=== PATIENT | female | born 2000 | race Caucasian/White ===

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

== ENCOUNTER → 2022-07-10 11:34 | Outpatient (CLI) | payer OTHER, SELFPAY ==
--- NOTE | ~2022-07-10 | XR_ITS ---
XR knee RT min 4V 07/10/2022 11:52 INDICATION: Right knee pain PROCEDURE: 4 views right knee COMPARISON: No prior studies for comparison. FINDINGS: Fracture, dislocation or subluxation is not identified. No joint effusion. The soft tissues appear within normal limits. No foreign bodies are identified. IMPRESSION: 1: NO ACUTE BONE OR JOINT ABNORMALITY IDENTIFIED. Reviewed, dictated and finalized at location L.
== END ==
PROVIDERS: PCP Nurse Practitioner Family; Visit Provider Nurse Practitioner Family
DX: M25.561 Pain in right knee (principal)
CPT/HCPCS: 73564

== ENCOUNTER 2022-08-18 10:32 | Emergency (ER) | payer OTHER, SELFPAY ==
[2022-08-18 10:38] VITALS: BP 125/81; PULSE 107; RESP 16; TEMP 36.4; O2SAT 99
--- NOTE | 2022-08-18 10:44 | ED.URI ---
HPI - URI/Sore Throat General Chief Complaint: Upper Respiratory Infection Stated Complaint: Congestion,Cough Time Seen by Provider: 08/18/22 10:38 Source: patient Mode of arrival: ambulatory Limitations: no limitations History of Present Illness HPI Narrative: Tabitha is a 22-year-old female patient presenting to clinic today with complaints of nasal congestion, sinus pain, cough, sore throat, headache, and head congestion. She reports the symptoms have been going on for approximately 10 days. Notes that she has had some green nasal drainage. Denies any fever or chills. No known exposure to anyone with COVID, flu, or strep. MD elicited complaint: cough, sore throat, nasal congestion, sinus pain and other Related Data Home Medications Medication Instructions Recorded Confirmed norgestimate-ethinyl estradiol 1 tablet PO DAILY 08/20/20 08/18/22 0.18 mg/0.215mg/0.25mg-35 mcg(28)tablet Allergies Allergy/AdvReac Type Severity Reaction Status Date / Time Sulfa (Sulfonamide AdvReac Mild Rash Verified 08/18/22 10:43 Antibiotics) Review of Systems Review of Systems: Pertinent positives per HPI. Patient denies any fever, chills, rash, headache, visual changes, dizziness, cough, shortness of breath, chest pain, palpitations, nausea, vomiting, diarrhea, constipation, abdominal pain, or any urinary issues. PMFSH Comments At the time of my signature, I reviewed and agree with the nursing past medical, surgical, social, and family history. There is no relevant family history pertinent to the patient complaint. Exam Narrative: General: Well-developed, overweight, in no apparent distress Head: Normocephalic, atraumatic Eyes: Pupils equally round and reactive to light bilaterally, EOM intact, sclera and conjunctive clear, no discharge, lids normal Ears: TMs intact and congested, ear canals clear, no drainage, grossly hearing normal. Nose: Nares patent, greenish discharge, severe inflammation, maxillary and frontal sinus tenderness. Mouth: Oral pharynx without lesions or masses, good dentition, MMM. Postnasal drip Neck: Supple, trachea midline, no enlargement of anterior or posterior cervical nodes, no thyroid masses or goiter palpable. Cardio: Regular rate and rhythm, s1 and s2 normal, no murmur appreciated. Resp: Clear to auscultation bilaterally, no rhonchi, rales, wheezing or rubs Course Course Emergency Course: Portions of this record may have been created with voice recognition software. Level of Care: Express Care Visit Vital Signs Vital signs: Vital Signs Temperature 36.4 C L 08/18/22 10:38 Pulse Rate 107 H 08/18/22 10:38 Respiratory Rate 16 08/18/22 10:38 Blood Pressure 125/81 08/18/22 10:38 Pulse Oximetry 99 08/18/22 10:38 Temperature 36.4 C L 08/18/22 10:38 Pulse Rate 107 H 08/18/22 10:38 Respiratory Rate 16 08/18/22 10:38 Blood Pressure 125/81 08/18/22 10:38 Pulse Oximetry 99 08/18/22 10:38 Vital signs reviewed MDM - URI/Sore Throat MDM Narrative Medical decision making narrative: At the time of visit patient is resting comfortably on the exam table. I suspect patient has acute bacterial rhinosinusitis. Prescription for prednisone and Augmentin was sent to the pharmacy. Supportive measures were discussed with the patient she voiced understanding discharge instructions agrees to treatment plan. Differential Diagnosis Differential diagnosis: Likely upper respiratory infection, otitis media, sinusitis, viral infection, bronchitis, influenza, pharyngitis and other (Covid) Discharge Plan Discharge Clinical Impression: Acute bacterial rhinosinusitis Patient Disposition: Home, Self-Care Condition: Stable Instructions: Antibiotic Form, Rhinosinusitis (ED) Additional Instructions: Take prescription medications only as prescribed-prednisone and Augmentin Increase fluids and stay well hydrated Tylenol/motrin for pain/fever Flonas
== END 2022-08-18 10:48 | disposition home or self-care (01) ==
PROVIDERS: Emergency Provider Nurse Practitioner Family; PCP Nurse Practitioner Family
DX: J01.90 Acute sinusitis, unspecified (principal); Z86.16 Personal history of COVID-19
CPT/HCPCS: 99213; G0463

== ENCOUNTER 2022-09-13 17:01 | Emergency (ER) | payer OTHER, SELFPAY ==
[2022-09-13 17:15] VITALS: BP 132/78; PULSE 112; RESP 18; TEMP 36.7; O2SAT 99
--- NOTE | 2022-09-13 17:47 | ED.URI ---
HPI - URI/Sore Throat General Chief Complaint: Upper Respiratory Infection Stated Complaint: throat irritation,congestion Time Seen by Provider: 09/13/22 17:48 Source: patient and RN notes reviewed Mode of arrival: ambulatory Limitations: no limitations History of Present Illness HPI Narrative: 22 y/o female presented for c/o sinus pressure, congestion, cough and sore throat. States she has had similar symptoms for over one month. Was seen at [facility] 08/11/22 for the same, prescribed augmentin and steroid, and states she felt better briefly. Taking sudafed and mucinex. Denies sob, wheezing, n/v/d/f/c. MD elicited complaint: cough Related Data Home Medications Medication Instructions Recorded Confirmed norgestimate-ethinyl estradiol 1 tablet PO DAILY 08/20/20 08/18/22 0.18 mg/0.215mg/0.25mg-35 mcg(28)tablet Allergies Allergy/AdvReac Type Severity Reaction Status Date / Time Sulfa (Sulfonamide AdvReac Mild Rash Verified 08/18/22 10:43 Antibiotics) Review of Systems Review of Systems: CONSTITUTIONAL: Denies malaise, chills, sweats, fever EYES: Denies visual changes, redness, or discharge ENT: Reports rhinorrhea, congestion, sinus pain, sore throat CARDIOVASCULAR: Denies chest pain, palpitations, edema RESPIRATORY: Reports cough, post nasal drainage. Denies dyspnea GASTROINTESTINAL: Denies abdominal pain, nausea, vomiting, diarrhea SKIN: Denies rash or itching MUSCULOSKELETAL: denies myalgia NEUROLOGIC: reports chronic headache [facility] Past Medical History Medical History (Updated 09/13/22 @ 19:19 by Kaye Ford, LILY) Chronic headache Exam Narrative: GENERAL: well-appearing, EYES: PERRLA, conjunctivae clear ENT: Mucous membranes moist. sinus congestion. TMs pearly chen with dull light reflex bilaterally; no tragal tenderness. Oropharynx mildly erythematous without lesions or exudate, no drooling, no hoarseness, no trismus, uvula midline. No tripod positioning, muffled voice, soft palate or pharyngeal wall bulging NECK: Supple. No lymphadenopathy CHEST: Clear to auscultation, breath sounds equal. No wheezing, rhonchi, rales, or stridor. No respiratory distress, speaks in full sentences. HEART: Regular rate and rhythm. No murmur heard. SKIN: Warm, dry, no rash. NEURO: Alert and oriented x3. PSYCH: Normal mood and affect Course Course Emergency Course: Patient is aware of diagnosis, understands and agrees to treatment plan. Anticipatory guidance given. Patient agrees to follow-up as directed and is aware of reasons to seek care at the emergency department. Portions of this record may have been created with voice recognition software Level of Care: Express Care Visit Vital Signs Vital signs: Vital Signs Temperature 98.1 F 09/13/22 17:15 Pulse Rate 112 H 09/13/22 17:15 Respiratory Rate 18 09/13/22 17:15 Blood Pressure 132/78 09/13/22 17:15 Pulse Oximetry 99 09/13/22 17:15 Oxygen Delivery Room Air 09/13/22 17:15 Temperature 98.1 F 09/13/22 17:15 Pulse Rate 112 H 09/13/22 17:15 Respiratory Rate 18 09/13/22 17:15 Blood Pressure 132/78 09/13/22 17:15 Pulse Oximetry 99 09/13/22 17:15 Oxygen Delivery Room Air 09/13/22 17:15 reviewed MDM - URI/Sore Throat MDM Narrative Medical decision making narrative: Strep neg. Discussed physical exam findings. Will try different abx, Rx doxy. Advised supportive measures and signs/symptoms to go to the ER. Pt is appropriate for outpt treatment and f/u with pcp. Differential Diagnosis Differential diagnosis: Likely upper respiratory infection, otitis media, sinusitis, viral infection and pharyngitis Lab Data Labs: Strep Screen Presumptive Negative *(Reference Range: Negative)* Discharge Plan Discharge Clinical Impression: Upper respiratory infection Patient Disposition: Home, Self-Care Condition: Stable Instru
== END 2022-09-13 18:10 | disposition home or self-care (01) ==
PROVIDERS: Emergency Provider Nurse Practitioner Family; PCP Nurse Practitioner Family
DX: J06.9 Acute upper respiratory infection, unspecified (principal)
CPT/HCPCS: 87081; 87880; 99213; G0463

== ENCOUNTER 2023-02-05 17:29 | Emergency (ER) | payer OTHER, SELFPAY ==
--- NOTE | 2023-02-05 17:43 | ED.URI ---
HPI - URI/Sore Throat General Chief Complaint: Upper Respiratory Infection Stated Complaint: sorethroat,bilateral ear discomfort Time Seen by Provider: 02/05/23 17:58 Source: patient and RN notes reviewed Mode of arrival: ambulatory Limitations: no limitations History of Present Illness HPI Narrative: 22-year-old female presents concern for sore throat, ear pain that started on Saturday. She reports she has had some headache and stomachache. She reports fever, chills, sweats. She works at a daycare MD elicited complaint: sore throat Related Data Home Medications Medication Instructions Recorded Confirmed norgestimate-ethinyl estradiol 1 tablet PO DAILY 08/20/20 02/05/23 0.18 mg/0.215mg/0.25mg-35 mcg(28)tablet sertraline 50 mg tablet 50 mg PO DAILY 02/05/23 02/05/23 Allergies Allergy/AdvReac Type Severity Reaction Status Date / Time Sulfa (Sulfonamide AdvReac Mild Rash Verified 02/05/23 17:47 Antibiotics) Review of Systems Review of Systems: CONSTITUTIONAL: Reports malaise, chills, sweats, or fever. EYES: Denies visual changes, redness, or discharge. ENT: Reports otalgia and sore throat. CARDIOVASCULAR: Denies chest pain, palpitations, or edema. RESPIRATORY: Reports cough. Denies dyspnea. GASTROINTESTINAL: Denies abdominal pain, vomiting, diarrhea. Reports nausea SKIN: Denies rash or itching. MUSCULOSKELETAL: Denies myalgia. NEUROLOGIC: Reports headache. All systems reviewed & are unremarkable except as noted in HPI and below PMFSH Past Medical History Medical History (Updated 02/05/23 @ 18:04 by Carly Romano NP) Chronic headache Comments At time of signature, agree with nursing past medical, surgical, social and family history. There is no relevant family history pertinent to the presenting complaint Exam Narrative: GENERAL: Well-appearing, well-nourished, and in no acute distress. HEAD: Normocephalic EYES: PERRLA, conjunctivae clear ENT: Nares clear. Mucous membranes moist. TM pearly chen with sharp light reflex bilaterally; no tragal tenderness. Oropharynx erythematous without lesions. Tonsils enlarged with exudate, no drooling, no hoarseness, no trismus, uvula midline. NECK: Supple. No lymphadenopathy CHEST: Clear to auscultation, breath sounds equal. No wheezing, rhonchi, rales, or stridor. No respiratory distress, speaks in full sentences. HEART: Regular rate and rhythm. No murmur heard. SKIN: Warm, dry, no rash. NEURO: Alert and oriented x3. PSYCH: Normal mood and affect Course Course Emergency Course: Patient is aware of diagnosis, understands and agrees to treatment plan. Anticipatory guidance given. Patient agrees to follow-up as directed and is aware of reasons to seek care at the emergency department. Portions of this record may have been created with voice recognition software Level of Care: Express Care Visit Vital Signs Vital signs: Reviewed. MDM - URI/Sore Throat MDM Narrative Medical decision making narrative: Differential diagnosis considered: [place] virus, strep pharyngitis, allergic rhinitis, upper respiratory tract infection, sinusitis, rhinosinusitis, nasopharyngitis. viral pharyngitis, otitis media, otitis externa, pneumonia, bronchitis, viral cough syndrome, viral syndrome, and influenza. Exam findings show no acute concerns or changes; patient is non-toxic appearing and is in no distress. Patient is appropriate for outpatient treatment and follow-up. Lab Data Attestation: I reviewed the patient's lab results. Critical Care Time Critical Care Time Critical Care Time: No Discharge Plan Discharge Clinical Impression: Acute streptococcal pharyngitis Patient Disposition: Home, Self-Care Condition: Stable Instructions: Antibiotic Form, Strep Throat (ED) Additional Instructions: -Take the medication as prescribed. Throw away the toothbrush after 24hours of antibiotic. -Eat and drink things that are easy to swallow, like tea or soup,
[2023-02-05 17:51] VITALS: BP 118/86; PULSE 131; RESP 18; TEMP 36.3; O2SAT 100
== END 2023-02-05 18:06 | disposition home or self-care (01) ==
PROVIDERS: Emergency Provider Nurse Practitioner; PCP Nurse Practitioner Family
DX: J02.0 Streptococcal pharyngitis (principal)
CPT/HCPCS: 87880; 99213; G0463

== ENCOUNTER 2023-08-05 16:58 | Emergency (ER) | payer OTHER, SELFPAY ==
--- NOTE | 2023-08-05 16:59 | ED.URI ---
HPI - URI/Sore Throat General Chief Complaint: Upper Respiratory Infection Stated Complaint: strep symptoms Time Seen by Provider: 08/05/23 16:58 Source: patient Mode of arrival: ambulatory Limitations: no limitations History of Present Illness HPI Narrative: Patient is a 23-year-old female presents with sore throat for 2-3 days. 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 Denies any fever, chills, nausea, vomiting, diarrhea, congestion, cough. Related Data Home Medications Medication Instructions Recorded Confirmed sertraline 50 mg tablet 50 mg PO DAILY 02/05/23 08/05/23 Allergies Allergy/AdvReac Type Severity Reaction Status Date / Time Sulfa (Sulfonamide AdvReac Mild Rash Verified 06/27/23 09:44 Antibiotics) Review of Systems Review of Systems: All systems reviewed & are unremarkable except as noted in HPI and below Constitutional: Constitutional: Denies body ache(s), Denies chills, Denies fatigue, Denies fever(s), Denies headache(s), Denies malaise and Denies weakness Eyes: Eyes: Denies blurry vision, Denies itchy eyes and Denies loss of vision ENT: Denies otalgia, Denies headache(s), Denies nasal congestion, Denies sinus pain and Reports sore throat Cardiovascular: Cardiovascular: Denies chest pain, Denies irregular heart rhythm and Denies dyspnea Respiratory: Respiratory: Denies cough and Denies dyspnea Gastrointestinal: Gastrointestinal: Denies abdominal pain, Denies diarrhea, Denies nausea and Denies vomiting Musculoskeletal: Musculoskeletal: Denies back pain, Denies myalgias and Denies arthralgias Integumentary/Breasts: Skin/Breast: Denies pruritus and Denies rash Neurologic: Denies headache(s), Denies loss of vision and Denies weakness Psychiatric: Psychiatric: Reports no additional psychiatric complaints Endocrine: Endocrine: Denies fatigue Allergic/Immunologic: Allergic/Immunologic: Denies itchy eyes PMFSH Past Medical History Medical History Allergies Anxiety Chronic headache Surgical History Surgical History No history of previous surgery Family History Family History Father Primary cancer of kidney Mother Hyperlipidemia Grandparent Heart disease Alcoholism Carcinoma of colon Social History Social History Social History: Patient feels very comfortable filling in medical forms. Smoking status: Never smoker Alcohol intake: current Substance use: never Do You Feel Safe in your Home?: Yes Lack of Transportation: No Lack of Food: Never True Current Housing: I Have Housing Concerned About Future Housing: No Difficulty Paying Gas/Electric Bills: No Difficulty Paying for Meds: No Currently Unemployed: No Education: High School Diploma/GED Difficulty w/ Childcare or Family Care: No Living arrangements: with family Occupation/Education: student Additional occupation/education comments: [employer] student Spiritual care concerns: No Comments At time of signature, agree with nursing past medical, surgical, social and family history. There is no relevant family history pertinent to the presenting complaint. Exam Const: General: cooperative, healthy appearing, comfortable, no acute distress and well nourished Nutritional Appearance: well nourished Orientation/consciousness: patient oriented x3 Limitations: no limitations HENMT: Head: normal to inspection, normocephalic and atraumatic Ears: hearing grossly normal bilaterally, external ears normal, TM's normal bilaterally, EAC's normal and no periauricular adenopathy Face/Nose/Sinus: Normal external nose present, Abnormal mucous membranes and turbinates present erythematous bilateral and diffuse, normal facial exam, sinuses nontender and face symmetric Face and sinus: normal f
[2023-08-05 17:02] VITALS: BP 125/76; PULSE 102; RESP 16; TEMP 36.4; O2SAT 100
[2023-08-05 17:10] VITALS: BP 144/82; PULSE 102; RESP 16; TEMP 36.4; O2SAT 100
== END 2023-08-05 17:35 | disposition home or self-care (01) ==
PROVIDERS: Emergency Provider Nurse Practitioner Family; PCP Nurse Practitioner Family
DX: T78.40XA Allergy, unspecified, initial encounter (principal); F41.9 Anxiety disorder, unspecified
CPT/HCPCS: 87081; 87880; 99213; G0463

== ENCOUNTER 2024-05-03 17:22 | Emergency (ER) | payer OTHER, SELFPAY ==
--- OUTSIDE RECORDS SUMMARY | 2024-05-03 17:23 | XMS_ITS | Data Portability ---
Author Organization [facility] [employer], Main Office Address [address] [place] [address] Assessment Encounter Date Assessment Date Assessment LastModified by Organization Details LastModified Time 01/18/2023 01/18/2023 The patient gave verbal consent using TeleHealth services and the consent is documented in the medical record prior to using the service. The patient has been informed of what a TeleMedicine visit is. Patient is located at home. Provider is located at office. Names and roles of persons in addition to the patient and provider participating in telemedicine services include none. The patient had a 9 minute TeleMedicine consultation via [employer] to discuss the following: Not available 01/18/2023 10:53:22 Plan of Treatment Reminders Order Date Submit Date Provider Last Modified By Organization Details Last Modified Time Details Appointments None recorded. Lab None recorded. Referral behavioral psychothera py referral 2022 023 [email or web address] Luz Monreal [facility], [address] [place] [address], [address], 4 08:49:57 physical therapist referral - right anterior knee pain 2022 023 [facility], [address], [place], [address], 18:15:04 Procedures None recorded. Surgeries None recorded. Imaging XR, knee - right anterior knee pain. 2022 023 [facility], [address], [place], [address], 16:59:45 Medication Orders sertraline 50 mg tablet 2023 024 [id number], [address], [place], [place], [id number], 4 09:46:04 sertraline 50 mg tablet 2022 023 [facility][id number], [address], [address], [place], [address], 3 10:53:53 Medrol (Kirill) 4 mg tablets in a dose pack 2022 023 [email or web address] [facility] #[id number], [address] [facility], [place], [place], [id number], 14:24:41 Patient TargetsNo targets recorded. Patient Instructions Encounter Date Encounter Id Patient Instructions Last Modified By Organization Details Last Modified Time 07/10/2022 [id number] FU prn knee pain right side. Not available 07/10/2022 12:36:06 01/18/2023 [id number] Due to the COVID-19 (Novel Coronavirus) pandemic, it is within this context (and with the understanding that this method of patient encounter is in the patient s best interest as well as the health and safety of other patients and the public) that telehealth is being provided for this patient encounter rather than a gzsm-kn-ecwn visit. This patient encounter is appropriate at this time. This patient has been advised of the potential risks and limitations of this mode of treatment (including, but not limited to, the absence of in-person examination) and has agreed to be treated in a remote fashion despite these risks. Any and all of the patient s/patient s family s questions on this issue have been answered, and I have made no promises or guarantees to the patient. The patient has also been advised to contact this office for worsening conditions or problems, and seek emergency medical treatment and/or call 911 if the patient deems either necessary. HPI and/or vitals, if listed, were provided by the patient. Not available 01/18/2023 10:44:24 02/22/2023 [id number] fu with new provider in 3 mo, sooner if needed. Not available 02/22/2023 09:52:18 Reason for Referral Physical Therapist Referral for Pain of right knee joint right anterior knee pain Referring Physician: Maren Roman, [facility], Encounter Date: 07/10/2022 Behavioral Psychotherapy Ref erral for Anxiety Referring Physician: Maren Roman [facility], Encounter Date: 01/18/2023 Results Created Date Observation Date Name Description Value Unit Range Abnormal Flag Note LastModifiedBy Organization Detail LastModifiedTime 08/23/19 22 08/23/2021 HEMOG LOBIN A1C hemoglobin A1C 5.1 %_of_ total _HGB <5.7 normal For the purpo se of danna cotto for the prese nce of diabe pete: <5.7% Consi stent with the absen ce of diabe pete 5.7-6 .4% Consi stent with incre ased risk for diabe pete (pred iabet es) > or =6.5% Consi stent with diabe pete This assay resul t is consi stent with a decre ased risk of diabe pete. Curre ntly, no conse nsus exist s kalia summers use of hemog lobin A1c for diagn osis of diabe pete in child bill. Accor ding to Ameri can Diabe pete Assoc iatio n (ADA) guide lines , hemog lobin A1c <7.0% repre sents optim al contr ol in non-p regna nt diabe tic patie nts. Diffe rent metri cs may apply to speci fic patie nt popul ation s. [facility] of Medic al Care in Diabe pete(A DA). Not Available [facility] [address], [place], [address], 08/23/2021 02:53:00 08/23/19 22 08/23/2021 VITAM IN D,25- OH,TO JAY,I A vitamin D,25-oh,tota l,ia 44 NG/mL 30-100 normal Vitam in D Statu s 25-OH Vitam in D: Defic iency : <20 ng/mL Insuf ficie ncy: 20 - 29 ng/mL Optim al: > or = 30 ng/mL For 25-OH Vitam in D testi ng on patie nts on D2-ramirez pplem entat ion and patie nts for whom quant itati on of D2 and D3 fract ions is requi red, the [facility] eD(TM ) 25-OH VIT D, (D2,D 3), LC/MS /MS is recom chiquita d: order code [id number] (moreno ents >2yrs ). See Note 1 Note 1 For addit ional infor charlotte ortiz, armando e refer to http: //[facility] teo Riveraia gnost ics.c om/fa q/FAQ 199 (This link is being provi ded for infor charlotte bermudez/ arthur del angel purpo ses only. ) Not Available [facility] [address] [place], [address], 08/23/2021 02:52:59 08/23/19 22 08/23/2021 TSH W/REF JAMES TO FT4 TSH w/reflex to FT4 1.54 mIU/L normal Refer ence Range 1-19 Years 0.50- 4.30 Pregn denae Range s First trime ster 0.26- 2.66 Secon d trime ster 0.55- 2.73 Third trime ster 0.43- 2.91 Not Available [facility] [address] [place], [address], 08/23/2021 02:52:59 08/23/19 22 08/23/2021 VITAM IN B12 vitamin B12 324 pg/mL 200-11 00 normal Pleas e Note: Altho ugh the refer ence range for vitam in B12 is 200-1 100 pg/mL , it has been repor margarita that betwe en 5 and 10% of patie nts with value s betwe en 200 and 400 pg/mL may exper ience neuro psych iatri c and hemat ologi c abnor malit ies due to occul t B12 defic iency ; less than 1% of patie nts with value s above 400 pg/mL will have sympt oms. Not Available [facility] [address], [address], 08/23/2021 02:52:58 08/23/19 22 08/23/2021 CBC (INCL UDES DIFF/ PLT) white blood cell count 4.3 thous and/u L 3.8-10 .8 normal Not Available [facility] [address], [address], 08/23/2021 02:52:58 08/23/19 22 08/23/2021 CBC (INCL UDES DIFF/ PLT) red blood cell count 4.85 martin on/uL 3.80-5 .10 normal Not Available [facility] [address], [address], 08/23/2021 02:52:58 08/23/19 22 08/23/2021 CBC (INCL UDES DIFF/ PLT) hemoglobin 12.6 g/dL 11.7-1 5.5 normal Not Available [facility] [address], [address], 08/23/2021 02:52:58 08/23/19 22 08/23/2021 CBC (INCL UDES DIFF/ PLT) hematocrit 40.3 % 35.0-4 5.0 normal Not Available [facility] [address], [address], 08/23/2021 02:52:58 08/23/19 22 08/23/2021 CBC (INCL UDES DIFF/ PLT) MCV 83.1 fL 80.0-1 00.0 normal Not Available [facility] [address], [address], 08/23/2021 02:52:58 08/23/19 22 08/23/2021 CBC (INCL UDES DIFF/ PLT) MCH 26.0 pg 27.0-3 3.0 low Not Available [facility] [address] [place], [address], 08/23/2021 02:52:58 08/23/19 22 08/23/2021 CBC (INCL UDES DIFF/ PLT) MCHC 31.3 g/dL 32.0-3 6.0 low Not Available [address], [address], 08/23/2021 02:52:58 08/23/19 22 08/23/2021 CBC (INCL UDES DIFF/ PLT) RDW 14.1 % 11.0-1 5.0 normal Not Available [address], [address], 08/23/2021 02:52:58 08/23/19 22 08/23/2021 CBC (INCL UDES DIFF/ PLT) platelet count 382 thous and/u L 140-40 0 normal Not Available [address], [address], 08/23/2021 02:52:58 08/23/19 22 08/23/2021 CBC (INCL UDES DIFF/ PLT) MPV 10.0 fL 7.5-12 .5 normal Not Available [address], [address], 08/23/2021 02:52:58 08/23/19 22 08/23/2021 CBC (INCL UDES DIFF/ PLT) absolute neutrophils 1531 cells /uL 1500-7 800 normal Not Available [facility] [address], [address], 08/23/2021 02:52:58 08/23/19 22 08/23/2021 CBC (INCL UDES DIFF/ PLT) absolute lymphocytes 2369 cells /uL 850-39 00 normal Not Available [facility] [address], [address], 08/23/2021 02:52:58 08/23/19 22 08/23/2021 CBC (INCL UDES DIFF/ PLT) absolute monocytes 331 cells /uL 200-95 0 normal Not Available [address], [address], 08/23/2021 02:52:58 08/23/19 22 08/23/2021 CBC (INCL UDES DIFF/ PLT) absolute eosinophils 39 cells /uL 15-500 normal Not Available [facility] [address], [address], 08/23/2021 02:52:58 08/23/19 22 08/23/2021 CBC (INCL UDES DIFF/ PLT) absolute basophils 30 cells /uL 0-200 normal Not Available [address], [address], 08/23/2021 02:52:58 08/23/19 22 08/23/2021 CBC (INCL UDES DIFF/ PLT) neutrophils 35.6 % normal Not Available [address], [address], 08/23/2021 02:52:58 08/23/19 22 08/23/2021 CBC (INCL UDES DIFF/ PLT) lymphocytes 55.1 % normal Not Available [address], [address], 08/23/2021 02:52:58 08/23/19 22 08/23/2021 CBC (INCL UDES DIFF/ PLT) monocytes 7.7 % normal Not Available [facility] [address], [address], 08/23/2021 02:52:58 08/23/19 22 08/23/2021 CBC (INCL UDES DIFF/ PLT) eosinophils 0.9 % normal Not Available [facility] [address], [address], 08/23/2021 02:52:58 08/23/19 22 08/23/2021 CBC (INCL UDES DIFF/ PLT) basophils 0.7 % normal Not Available [address], [address], 08/23/2021 02:52:58 08/23/19 22 08/23/2021 COMPR EHENS LAURA METAB OLIC PANEL glucose 84 mg/dL 65-99 normal Fasti ng refer ence inter virgil Not Available [address], [address], 08/23/2021 02:52:57 08/23/19 22 08/23/2021 COMPR EHENS LAURA METAB OLIC PANEL urea nitrogen (BUN) 9 mg/dL 7-20 normal Not Available [address], [address], 08/23/2021 02:52:57 08/23/19 22 08/23/2021 COMPR EHENS LAURA METAB OLIC PANEL creatinine 0.76 mg/dL 0.50-1 .00 normal Not Available [address], [address], 08/23/2021 02:52:57 08/23/19 22 08/23/2021 COMPR EHENS LAURA METAB OLIC PANEL eGFR non-afr. indian 114 mL/mi n/1.7 3m2 > or = 60 normal Not Available [address], [address], 08/23/2021 02:52:57 08/23/19 22 08/23/2021 COMPR EHENS LAURA METAB OLIC PANEL eGFR 132 mL/mi n/1.7 3m2 > or = 60 normal Not Available [address], [address], 08/23/2021 02:52:57 08/23/19 22 08/23/2021 COMPR EHENS LAURA METAB OLIC PANEL BUN/creatini ne ratio not applic able (calc ) 6-22 Not Available [address], [address], 08/23/2021 02:52:57 08/23/19 22 08/23/2021 COMPR EHENS LAURA METAB OLIC PANEL sodium 140 mmol/ L 135-14 6 normal Not Available [address], [address], 08/23/2021 02:52:57 08/23/19 22 08/23/2021 COMPR EHENS LAURA METAB OLIC PANEL potassium 4.4 mmol/ L 3.8-5. 1 normal Not Available [address], [address], 08/23/2021 02:52:57 08/23/19 22 08/23/2021 COMPR EHENS LAURA METAB OLIC PANEL chloride 106 mmol/ L 98-110 normal Not Available [address], [address], 08/23/2021 02:52:57 08/23/19 22 08/23/2021 COMPR EHENS LAURA METAB OLIC PANEL carbon dioxide 25 mmol/ L 20-32 normal Not Available [address], [address], 08/23/2021 02:52:57 08/23/19 22 08/23/2021 COMPR EHENS LAURA METAB OLIC PANEL calcium 9.6 mg/dL 8.9-10 .4 normal Not Available [address], [address], 08/23/2021 02:52:57 08/23/19 22 08/23/2021 COMPR EHENS LAURA METAB OLIC PANEL protein, total 6.9 g/dL 6.3-8. 2 normal Not Available [address], [address], 08/23/2021 02:52:57 08/23/19 22 08/23/2021 COMPR EHENS LAURA METAB OLIC PANEL albumin 4.0 g/dL 3.6-5. 1 normal Not Available [address], [address], 08/23/2021 02:52:57 08/23/19 22 08/23/2021 COMPR EHENS LAURA METAB OLIC PANEL globulin 2.9 g/dL_ (calc ) 2.0-3. 8 normal Not Available [address], [address], 08/23/2021 02:52:57 08/23/19 22 08/23/2021 COMPR EHENS LAURA METAB OLIC PANEL albumin/glob ulin ratio 1.4 (calc ) 1.0-2. 5 normal Not Available [address], [address], 08/23/2021 02:52:57 08/23/19 22 08/23/2021 COMPR EHENS LAURA METAB OLIC PANEL bilirubin, total 0.4 mg/dL 0.2-1. 1 normal Not Available [address], [address], 08/23/2021 02:52:57 08/23/19 22 08/23/2021 COMPR EHENS LAURA METAB OLIC PANEL alkaline phosphatase 57 U/L 36-128 normal Not Available [address], [address], 08/23/2021 02:52:57 08/23/19 22 08/23/2021 COMPR EHENS LAURA METAB OLIC PANEL AST 23 U/L 12-32 normal Not Available [address], [address], 08/23/2021 02:52:57 08/23/19 22 08/23/2021 COMPR EHENS LAURA METAB OLIC PANEL ALT 29 U/L 5-32 normal Not Available [address] [place], [address], 08/23/2021 02:52:57 08/23/19 22 08/23/2021 MAGNE SIUM magnesium 2.0 mg/dL 1.5-2. 5 normal Not Available [address], [address], 08/23/2021 02:52:57 08/23/19 22 08/23/2021 LIPID PANEL , STAND MARJAN cholesterol, total 233 mg/dL <170 high Not Available [address], [address], 08/23/2021 02:52:56 08/23/19 22 08/23/2021 LIPID PANEL , STAND MARJAN HDL cholesterol 73 mg/dL >45 normal Not Available [address], [address], 08/23/2021 02:52:56 08/23/19 22 08/23/2021 LIPID PANEL , STAND MARJAN triglyceride s 98 mg/dL <90 high Not Available [address], [address], 08/23/2021 02:52:56 08/23/19 22 08/23/2021 LIPID PANEL , STAND MARJAN LDL-choleste rol 139 mg/dL _(yanet c) <110 high LDL-C is now calcu lated using the Becky n-Hop kins calcu eri n, which is a valid ated novel metho d provi ding javi r accur acy than the Fried sean equat ion in the estim ation of LDL-C . Becky ortiz SS et al. CRUZ. 2013; 310(1 9): 2061- 2068 (http ://ed ucati on.Qu [employer]a [employer]. com/f aq/FA Q164) Not Available [address], [address], 08/23/2021 02:52:56 08/23/19 22 08/23/2021 LIPID PANEL , STAND MARJAN chol/HDLC ratio 3.2 (calc ) <5.0 normal Not Available [facility] [address], [place], [address], 08/23/2021 02:52:56 08/23/19 22 08/23/2021 LIPID PANEL , STAND MARJAN non HDL cholesterol 160 mg/dL _(yanet c) <120 high For patie nts with diabe pete plus 1 major ASCVD risk facto r, treat ing to a non-H DL-C goal of <100 mg/dL (LDL- C of <70 mg/dL ) is consi sin kenny c optio n. Not Available [facility] [address], [place], [address], 08/23/2021 02:52:56 07/11/19 23 07/10/2022 XR, knee No observ ation record ed. [email or web address] [facility] [address], [place], [address], 07/11/2022 09:41:44 Result Notes None recorded. Problems Name Problem SNOMED Code Status Onset Date Resolution Date Notes Provider Name and Address Organization Details Recorded Time Patellar tendonitis 73373799 Active Not Available [facility] 3 18:20:23 Migraine 44212688 Active 2021 Not Available [facility] 3 18:20:23 Contracept ion care Active 2021 Not Available [facility] 3 18:20:23 Pain in limb 71535253 Active Not Available [facility] 3 18:20:24 Pain of right knee joint 3514942433034 00 Active 2022 Maren Roman NP [address], [place], [address] , [facility] [employer] [facility] 3 12:18:11 Vaginal discharge 731104220 Active 2022 Maren Roman NP [address], [address], [place], [address] , [facility] [employer] [facility] 3 14:04:13 Anxiety 56222103 Active 2022 Maren Roman NP [address], [facility] [address], [place], [address] , [facility] [employer] [facility] 3 10:48:39 Problem Notes None recorded. Procedures Surgical History None recorded. Imaging Results Imaging Date Name Status LastModified by Organiz ation Details LastModified Time 07/10/2022 XR, knee completed [email or web address] [facility] [address] [facility] [address], [place], [address], 07/11/2022 09:41:44 Procedure Notes None recorded. Medical Equipment None Reported. Allergies Allergen ID Allergen Name Allergen Category Reaction Reaction Severity Criticality Documentation Date Start Date Code Code System Note Provider Name and Address Organization Details Recorded Time 78391 Substance with sulfonami de structure and antibacte rial mechanism of action (substanc e) medicatio n Not available Not available Not available 07/26/2022 05340 8003 SNOMED Maren Dey RN null, [facility] [employer] [facility] 14:24:32 Medications Name Sig Start Date Stop Date Status Note LastModified by Organization Details LastModified Time fluconazole 150 mg tablet TAKE 1 TABLET BY MOUTH EVERY 48 HOURS FOR 3 DAYS. TAKE 1 DOSE NOW AND A SECOND DOSE IF SYMPTOMS REMAIN IN 48 HOURS. 02/22 completed Not Available Not Available Not Available benzonatate 200 mg capsule TAKE 1 CAPSULE BY MOUTH THREE TIMES DAILY NEEDED FOR COUGH 02/22 completed Not Available Not Available Not Available phenazopyri dine 200 mg tablet TAKE 1 TABLET BY MOUTH THREE TIMES DAILY NEEDED FOR PAIN 02/23 completed Not Available Not Available Not Available prednisone 20 mg tablet TAKE 2 TABLETS BY MOUTH DAILY FOR 5 DAYS 02/22 completed Not Available Not Available Not Available penicillin V potassium 500 mg tablet TAKE 1 TABLET BY MOUTH EVERY 12 HOURS FOR 10 DAYS 02/22 completed Not Available Not Available Not Available norgestimat e-ethinyl estradiol 0.18mg/0.21 5mg/0.25mg- 0.035mg(28) tablet TAKE 1 TABLET DAILY 2023 active Not Available Not Available Not Avai lable methylpredn isolone 4 mg tablets in a dose pack FOLLOW PACKAGE DIRECTION S 07/26 completed Not Available Not Available Not Available sertraline 50 mg tablet TAKE 1 TABLET BY MOUTH EVERY DAY DIRECTED active Not Available Not Available No t Available doxycycline hyclate 100 mg tablet TAKE 1 TABLET BY MOUTH TWICE DAILY FOR 5 DAYS 02/22 completed Not Available Not Available Not Available amoxicillin 875 mg-potassiu m clavulanate 125 mg tablet TAKE 1 TABLET BY MOUTH EVERY 12 HOURS FOR 10 DAYS 02/22 completed Not Available Not Available Not Available nitrofurant oin monohydrate /macrocryst als 100 mg capsule TAKE 1 CAPSULE BY MOUTH EVERY 12 HOURS FOR 5 DAYS 02/23 completed Not Available Not Available Not Available FeroSul 325 mg (65 mg iron) tablet TAKE 1 TABLET BY MOUTH TWICE DAILY WITH MORNING AND EVENING MEAL 02/23 completed Not Available Not Available Not Available ID NOW COVID-19 Test Kit TEST DIRECTED TODAY 08/22 completed Not Available Not Available Not Available [employer] COVID-19 Antigen Home Test kit 07/10 completed Not Available Not Available Not Available Vitals Date Recorded Body mass index (BMI) Body height Respiratory rate Body temperature Body weight Systolic blood pressure Diastolic blood pressure Provider Name and Address Organization Details Last Updated DateTime 2 35.1 kg/m2 160.02 cm 16 /min 97.4 [degF] 89797.0 4 g 100 mm[Hg] 80 mm[Hg] Not Available [facility] 3 18:20:04 Date Recorded Body height Body mass index (BMI) Body mass index (BMI) Percentile per age and sex Body weight Body temperature Heart rate Respiratory rate Oxygen saturation Oxygen saturation in Arterial blood by Pulse oximetry Pain severity - 0-10 verbal numeric rating [Score] - Reported Systolic blood pressure Diastolic blood pressure Provider Name and Address Organization Details Last Updated DateTime 3 160.02 cm 35.7 kg/m2 97 % 56002.8 7 g 96.9 [degF] 105 /min 16 /min 98 % 98 % 1 142 mm[Hg] 84 mm[Hg] Maren Dey RN [place] - [facility] [employer] 3 12:05:43 Date Recorded Body height Body mass index (BMI) Percentile per age and sex Body mass index (BMI) Body weight Body temperature Heart rate Respiratory rate Oxygen saturation Oxygen saturation in Arterial blood by Pulse oximetry Pain severity - 0-10 verbal numeric rating [Score] - Reported Systolic blood pressure Diastolic blood pressure Provider Name and Address Organization Details Last Updated DateTime 3 160.02 cm 97 % 36.2 kg/m2 85477.2 9 g 97 [degF] 95 /min 16 /min 96 % 96 % 0 138 mm[Hg] 88 mm[Hg] Maren Dey RN [facility] [employer] 3 14:26:38 Date Recorded Body height Body mass index (BMI) Percentile per age and sex Body mass index (BMI) Body weight Body temperature Heart rate Oxygen saturation Oxygen saturation in Arterial blood by Pulse oximetry Systolic blood pressure Diastolic blood pressure Provider Name and Address Organization Details Last Updated DateTime 4 160.02 cm 98 % 37.7 kg/m2 29086.1 7 g 98.4 [degF] 104 /min 97 % 97 % 113 mm[Hg] 79 mm[Hg] Tiff Burgos MA [place] [employer] 4 09:36:44 Social History Question Answer Notes LastModified by Organizat ion Details LastModified Time Tobacco Smoking Status Never Smoker Marni miguel [place] [employer] [facility] [employer] 01/18/2023 09:38:13 Do You Have An Advance Directive? No [id number] Information not available 04/18/2022 What Is Your Level Of Alcohol Consumption? Occasional [id number] Information not available 04/18/2022 Do You Wear A Helmet When Biking? Yes Information not available 01/18/2023 Is Blood Transfusion Acceptable In An Emergency? Yes Information not available 01/18/2023 Are You Or Have You Been Involved With Bullying? No Information not available 01/18/2023 What Is Your Level Of Caffeine Consumption? Occasional [id number] Information not available 04/18/2022 What Is Your Code Status? Full Code Information not available 01/18/2023 In The 14 Days Before Symptom Onset, Have You Had Close Contact With A Laboratory-confi rmed COVID-19 While That Case Was Ill? No Information not available 01/18/2023 In The 14 Days Before Symptom Onset, Have You Had Close Contact With A Person Who Is Under Investigation For COVID-19 While That Person Was Ill? No Information not available 01/18/2023 What Type Of Diet Are You Following? REGULAR [id number] Information not available 04/18/2022 What Is The Highest Grade Or Level Of School You Have Completed Or The Highest Degree You Have Received? 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 2 Information not available 01/18/2023 On Those Days That You Engage In Moderate To Strenuous Exercise, How Many Minutes, On Average, Do You Exercise? 30 Information not available 01/18/2023 Have There Been Any Changes To Your Family Or Social Situation? No Information not available 01/18/2023 What Is Your Home Situation? Both Parents Information not available 01/18/2023 Do You Use Insect Repellent Routinely? Yes Information not available 01/18/2023 Where Do You Live? SingleLevelHouse Information not available 01/18/2023 Do You Have A Medical Power Of Stunner? No Information not available 01/18/2023 What Is Your Parents' Marital Status? Information not available 01/18/2023 Have You Ever Been Counseled For Unhealthy Alcohol Use? No Information not available 01/18/2023 Do You Have Any Pets? No Information not available 01/18/2023 What Is Your Relationship Status? Single [id number] Information not available 04/18/2022 Do You Use Your Seat Belt Or Car Seat Routinely? Yes Information not available 01/18/2023 Do You Have Any Siblings? 3 Information not available 01/18/2023 Do You Have Smoke And Carbon Monoxide Detectors In Your Home? Yes Information not available 01/18/2023 Are You Passively Exposed To Smoke? No Information not available 01/18/2023 Are There Any Smokers In Your House? No Information not available 01/18/2023 Do You Participate In Social Media? Yes Information not available 01/18/2023 What Types Of Sporting Activities Do You Participate In? Treadmill, Weights Information n ot available 01/18/2023 Do You Feel Stressed (tense, Restless, Nervous, Or Anxious, Or Unable To Sleep At Night)? [id number] Information not available 01/18/2023 Do You Use Any Illicit Or Recreational Drugs? No Information not available 01/18/2023 Do You Use Sunscreen Routinely? Yes Information not available 01/18/2023 Has Tobacco Cessation Counseling Been Provided? No Information not available 01/18/2023 Have You Recently Traveled Abroad? No Information not available 01/18/2023 Are You Currently In School? Yes Information not available 01/18/2023 Do You Have Any Dietary Restrictions? No Information not available 01/18/2023 Do You Or Have You Ever Used Any Other Forms Of Tobacco Or Nicotine? No Information not available 01/18/2023 Sex: Female Functional Status Question Answer Note LastModified by Organizat ion Details LastModified Time What is your exercise level? Occasional [id number] Information not available 04/18/2022 Mental Status None recorded. Family History Relationship Description Onset Age of this Age Resolved Age Notes LastModified by Organization Details LastModified Time Father No current problems or disability [id number] Not available 04/18/2022 18:19:52 Mother No current problems or disability [id number] Not available 04/18/2022 18:19:52 Maternal Uncle Type 2 diabetes mellitus [id number] Not available 04/18/2022 18:19:52 Medical History No medical history recorded. Gynecological History Statement/Question Response Flow Moderate Date of LMP 07/23/2022 STIs/STDs N Dislike of Light during Menstrual Headac he Y Duration of Flow (days) 5 Most Recent Mammogram Current Control Method BCPs Age at Menarche 15 Breast Problems none Date of Last Colonoscopy Frequency of Cycle (Q days) 5 Most Recent Bone Density Sexually Active? N Weight gain N Menses Monthly Y Date of Last Pap Smear Discharge none Obstetrics History GPAL:G 0 P 0 0 0 0 Type Value Multiple Births 0 Living 0 Total 0 Immunizations Vaccine Type Date Status Note Provider Nam e and Address Organization Details Recorded Time SARS-COV-2 (COVID-19) vaccine, UNSPECIFIED 1 completed Not Available [facility] 04/18/2022 18:21:08 SARS-COV-2 (COVID-19) vaccine, UNSPECIFIED 1 completed Not Available [facility] 04/18/2022 18:21:08 SARS-COV-2 (COVID-19) vaccine, UNSPECIFIED 1 completed Not Available [facility] 04/18/2022 18:21:08 Influenza, split virus, quadrivalent, preservative 1 completed Not Available [facility] 04/18/2022 18:21:08 Tdap 3 completed Maren Dey RN [facility], [facility] [employer] [facility] 07/26/2022 14:51:05 Past Encounters Encounter ID Performer Location Encounter Start Date Encounter Closed Date Diagnosis/Indication Diagnosis SNOMED-CT Code Diagnosis ICD10 Code Diagnosis Note [id number] [facility] [address] [place] [address] 1 02/23/2021 00:00:00 02/23/2021 11:48:25 [id number] [facility] [address] [place] [address] 1 08/22/2021 00:00:00 08/22/2021 09:03:01 [id number] Maren Roman NP [facility] [address] [place] [phone] 1 07/10/2022 11:55:13 07/10/2022 12:42:42 Pain of right knee joint 5173381282 23302 M25.561 Xray right knee.Kibler bill gel topical or similar otc.Referr ing to PT [facility] per pt request.We ar knee brace for this weekend, sister's wedding, off at night. [id number] Maren Roman NP [address] [address] 07/26/2022 14:17:20 07/26/2022 15:08:40 History and physical examination, pre-employment 515173251 Z02.1 Encouraged well balanced meals, active lifestyle and routine vision and dental appts. Administra tion of diphtheria, pertussis, and tetanus vaccine 492981724 Z23 Tdap [id number] Maren Roman NP [address] [address] 01/18/2023 09:38:00 01/18/2023 10:57:52 Anxiety 76894070 F41.9 sertraline 50 mg po daily, 1/2 tab po daily for 8-10 days then 1 tab po daily.refe rring to therapy as well. [id number] Maren Roman NP [address] [address] 02/22/2023 09:23:04 02/22/2023 10:00:05 Anxiety 39390654 F41.9 sertraline 50 mg po daily. Has referral to therapist if needed. Health Concerns Section Related Observation LastModified by Organization Detai ls LastModified Time None Recorded Concern Status LastModified by Organization Details LastModified Time None Recorded Advance Directives Directive N: Payers Encounter Date Sequence Insurance Name Policy Number Policy Lyn Covered Member ID Lyn Member ID Guarantor Name 07/10/2022 1 R [id number] Tabitha Andersen [id number] Blaise Andersen 07/26/2022 1 UMR [id number] Tabitha Andersen [id number] Blaise Andersen 01/18/2023 1 UMR [id number] Tabitha Andersen [id number] Blaise Andersen 02/22/2023 1 UMR [id number] Tabitha Andersen [id number] Blaise Andersen Notes Date Note Type Note Provider Name and Address Organization Details Recorded Time 07/10/2022 text/html Here for right knee pain. Not sure injury.Few years ago went to doctor about knee pain. Told tendonitis and went to PT. Got better. Now only flared with walking too much or excess activity.Now when at desk after sitting for a bit, get up and pain in knee.Pain is not one side or the other, but all over pain . Pain more in anterior right knee.Was wearing a knee brace on right knee. Took it off without it and pain was worse than when it was on. No issue with left knee. 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 Maren Roman NP [address], [address], [place], [address], [employer] 07/10/2022 12:36:31 07/26/2022 text/html Here for work physical for [employer] Maren Roman NP [address], [place], [address], [employer] 07/26/2022 14:53:23 01/18/2023 text/html Consents to telemedicine visit. Anxiety- symptoms for a while, feeling anxious. staying anxious for a while, worries, affecting thoughts. Concerns and fear of . Sister suggested starting meds and seeing therapist. Gets increased heart rate. Has to work to calm self down with deep breathing. Not affecting school, but constantly on mind. States sister's recommended sertraline. Maren Roman NP [address], [address], [place], [address], [employer] 01/18/2023 10:55:16 02/22/2023 text/html Here for check u p on anxiety.Has been on Sertraline 50 mg po daily for 1 mo. Feeling better. Sleeping well. Has been on break so hard to tell fully if everything is improved, but doesn't feel worse. Has not had side effects of taking medication. No SI/HI.No depression. Still has nervous/anxious feelings about most things, but more of the unknown issues rather than not being able to deal with things. Maren Roman, MANUEL [address], [facility] [address], [place], [address], [facility] [employer] [facility] 02/22/2023 09:52:43 OBGyn Episode No OBEpisode recorded.
--- OUTSIDE RECORDS SUMMARY | 2024-05-03 17:23 | XMS_ITS | Clinical Summary ---
Author Organization [facility] Address [address] [facility] [place] [address] Care Team Providers Care Hand Quilter Name Role Phone Bradley Dennis MD Unavailable [phone] Marine Clark DO Primary Care Provider [phone] Source Comments [facility],non-owned Affiliates and Associated Physician Practices is amultiple site organization consisting of ambulatory clinics and hospital sitesin [place], [place], [place] and [place]. This disclosure is being madepursuant to the Care Everywhere program and may not contain all information available regarding this patient. Last updated 17.[facility] Allergies Active Allergy Reactions Criticality Noted Date Comments Sulfa Drugs 08/31/2009 Mom and Sister are allergic. Mom want to keep her away from this drug. Medications * Be aware that medications may not be up to date on this document. Alwaysverify current medications with the patient. Medication Sig Dispensed Refills Start Date End Date Status albuterol HFA (PROVENTIL;VENTOLIN;P ROAIR) 108 (90 BASE) MCG/ACT inhalerIndications:Ex ercise induced bronchospasm (HCC) Inhale 2 Puffs by mouth every 4 hours as needed for Shortness of Breath or Cough (use 10 minutes before exercise) 2 Inhaler 3 01/30/2016 Active naproxen (NAPROSYN) 500 MG tablet Take 1 tablet by mouth 2 times daily as needed for Pain (headache) 30 tablet 1 04/08/2017 Active norgestim-eth estrad triphasic (TRI-SPRINTEC) tablet Take 1 tablet by mouth once daily 1 packet 12/17/2019 Active ferrous sulfate 325 (65 FE) MG tablet Take 1 (one) tablet by mouth 2 times daily with morning and evening meal 60 tablet 2 07/01/2020 Active Active Problems Problem Noted Date Diagnosed Date Mixed headache 04/10/2017 Overview (04/11/2017): History of headaches: First Headache on Feb 10, 2017. Since then, nearly daily headaches. Frequency: Nearly daily Location: Occipital and occipital Quality: Sharp/pounding Onset/duration: Initially abrupt. Now just always there. Pain severity is rated 7/10 at worse, 3/10 at best. Associated symptoms of Not usually any photophobia, phonophobia, nausea, vomiting, facial pallor, periorbital discoloration, muscle weakness or other neurologic dysfunction. Visual changes or aura: none Awaken from sleep: no Occur on weekends and weekdays: yes Any Triggers such as sleep deprivation, exercise, foods, stress, school, noise: none What has helped the headache pain: ibuprofen works a little better than tylenol to take edge off pain but not to completely abort. Using a warm pack also helps. School days missed: none There have been ( ) school days missed in past 2 months due to [place]. Vision Checked? Yes Wears contacts Sleep: Bedtime Problems: No issues Excessive Daytime Sleepiness: no Awakenings during the Night: no Regularity and Duration of Sleep: About 8 hours-has electronics in bedroom Snoring: no Diet: Any skipped meals: no Beverages: mostly water. NO soda/Tea/Energy Drinks. Occasionally weak Coffee. Activities Exercise: dances Clubs/band etc yes Friends: Yes Behavior issues: No issues Assessment & Plan (04/10/2017 3:32 PM BUSINESS SUPPORT): Mixed headaches-single migraine initially and now chronic daily headache with normal exam. Additional workup: none at this time. Will consider obtaining MRI if no improvement or exam changes. To Keep Headache diary for next 2 months. Discussed Life habits that may worsen headaches: Sleep-remove electronics from bedroom. Hydration-take water bottle to school. Do not skip breakfast. Medications: Abortive medications : Give naproxen 500 mg twice a day for 3 days then give as needed for headache. Call if having to give more than 2 times a week consisently. Prophylactic medications (taken daily to help decrease the number of headaches): Deferred at this time. Discussed options. Will wait to see her response to above first. Goal of starting treatment: Decrease daily headaches to only occasionally. Follow-up visit in 3 month, or sooner as needed Overweight 10/07/2013 Overview (12/26/2014): Screening for condition 07/21/2012 Overview (11/18/2014): Lipid Profile 07/21/12 TC 177 HDL 50 TRG 170 LDL 92 GLU 91 Well child visit 08/16/2010 Overview (12/13/2017): 10 y/o 08/16/10 12yo 07/21/12 14 yo 10/11/14 15 yo 11/28/15 16 yo 11/30/16 17 yo 12/13/17 Lactose intolerance 08/31/2009 Resolved Problems Problem Noted Date Diagnosed Date Resolved Date AOM (acute otitis media) 12/31/2012 Overview (12/31/2012): 12/31/12 Left ( amox) Plantar wart 08/16/2010 07/18/2016 Overview (08/16/2010): Right big toe UTI (urinary tract infection) 08/31/2009 07/18/2016 Overview (09/05/2009): 08/21/09 Tibia fracture 09/19/2003 07/18/2016 Overview (12/25/2009): 09/2003 Immunizations Name Administration Dates Next Due INFLUENZA VACCINE, TRIV. (AF LURIA, FLUZONE TRIVALENT; 6MO+) (IIV3) 03/16/2011 Covid [employer] primary monoval ent 12+ yr 0.3mL Purple cap 05/08/2020,04/16/2020 DTaP VACCINE IM (6wk-6yrs) 05/13/2007,,2002,08/25,2002 FLU VACCINE TRI IIV3 SPLIT P F IM (FLUVIRIN) 02/09/2013 HEP A PEDS 2 DOSE 10/11/2014,09/29/2013 HEP B VACCINE, PED/ADOL 2002,2002, HIB BOOSTER 07/14/2003, 3,2002,07/28 Human Papilloma Virus James valent Vaccine 10/11/2014,11/27/2013,09/29/2013 INFLUENZA A H8O6-48 VACCINE 01/11/2009 INFLUENZA VACCINE 12/16/2008, 5,01/07/2003,12/03 INFLUENZA VACCINE, QUADR. (A FLURIA, FLUZONE QUADRIVALENT; 6MO+) (IIV4) 11/27/2013 INFLUENZA VACCINE, QUADR. (F LUZONE; FLULAVAL; FLUARIX; AFLURIA QUADRIVALENT; 6MO+), 0.5 ML (IIV4) 11/13/2019,12/19/2018,12/13/2017,11/30,11/28/2015 MENINGOCOCCAL B RECOMBINANT, 2 OR 3 DOSE, IM 05/27/2020,11/13/2019 MENINGOCOCCAL CONJUGATE (MCV4P) 12/19/2018,09/29 MMR 08/16/2019,05/13/2007,07/14/2003 PNEUMOCOCCAL CONJ, PEDS 07/14/2003,12/03,2002,07/28 POLIO IPV 05/13/2007, 4,2002,06/29 PPD 05/13/2007,02/08/2003 TDAP (7yrs+) 09/29/2013 VARICELLA 05/13/2007,2003 Family History Medical History Relation Name Comments None Known Father Allergies Mother Cancer - Colon Paternal Grandfather Allergies Sister Relation Name Status Comments Father Mother Paternal Grandfather Sister Social History Tobacco Use Types Packs/Day Years Used Date Smoking Tobacco: Never Smokeless Tobacco: Never Alcohol Use Standard Drinks/Week Comments No 0 (1 standard drink = 0.6 oz pur e alcohol) Sex and Gender Information Value Date Recorded Sex Assigned at Not on file Gender Identity Not on file Sexual Orientation Not on file Last Filed Vital Signs Vital Sign Reading Time Taken Comments Blood Pressure 100/78 02/17/2020 9:35 AM BUSINESS SUPPORT Pulse 103 01/30/2016 2:39 PM BUSINESS SUPPORT Temperature 36.6 C (97.9 F) 05/27/2020 3:05 PM CDT Respiratory Rate - - Oxygen Saturation 100% 01/30/2016 2:39 PM BUSINESS SUPPORT Inhaled Oxygen Concentration - - Weight 72.2 kg (159 lb 2.8 oz) 02/17/2020 9:35 A M BUSINESS SUPPORT Height 160.4 cm (5' 3.15 ) 02/17/2020 9:35 AM CS T Body Mass Index 28.06 02/17/2020 9:35 AM BUSINESS SUPPORT Plan of Treatment Health Maintenance Due Date Last Done Comments PAP SMEAR 2002 HIV SCREENING 2017 CHLAMYDIA/GONORRHEA SCREENING 2018 HEPATITIS C SCREENING 04/10/2020 DTAP/TDAP/TD VACCINES (7 - T d or Tdap) 09/30/2023 09/29/2013, 05/13/2007, 10/14/2003, Additional history exists COVID-19 VACCINE (2023-2 5 season) 2023 05/08/2020, 04/16/2020 INFLUENZA VACCINE (#1) 2023 , 12/19/2018, 12/13/2017, Additional history exists DEPRESSION SCREENING 02/19/2024 ZOSTER VACCINE (1 of 2) 2052 HEPATITIS B VACCINE Completed 2002, 2002, 2002 HIB VACCINE Completed 07/14/2003, 11/18, 2002, Additional history exists PNEUMOCOCCAL VACCINE Completed 07/14/2003, 2002, 2002, Additional history exists HPV VACCINE Completed 10/11/2014, 11/18, 09/29/2013 MENINGOCOCCAL GROUPS A/C/Y/W VACCINE Completed 12/19/2018, 09/29/2013 MENINGOCOCCAL (Group B) VACC INE SHARED DECISION-MAKING Completed 05/27/2020, 11/13/2019 Goals Goal Patient Goal Type Associated Problems Recent Progress Patient-Stated? Author Use safety retraint in car Lifestyle On track( 020 1:57 PM CDT) Kassie Michelle Care Teams Hand Quilter Relationship Specialty Start Date End Date Bradley Dennis MD PCP - Pediatrics 08/31/09 Marine Clark DO [address] [place] [id number] PCP - General Pediatrics 11/12/19
--- OUTSIDE RECORDS SUMMARY | 2024-05-03 17:23 | XMS_ITS | Referral Summary ---
Author Organization [facility] Address [address] [place] [address] Care Team Providers Care Residential Remodeling Subcontractor Name Role Phone Bradley Dennis MD Unavailable [phone] Marine Clark DO Primary Care Provider [phone] [facility],non-owned Affiliates and Associated Physician Practices is amultiple site organization consisting of ambulatory clinics and hospital sitesin [place], [place], [place] and [place]. This disclosure is being madepursuant to the Care Everywhere program and may not contain all information available regarding this patient. Last updated 17.[facility] Allergies Active Allergy Reactions Criticality Noted Date [...] issues Assessment & Plan (04/10/2017 3:32 PM HOSPITAL SECURITY OFFICER): Mixed headaches-single migraine initially and now chronic [...] LURIA, FLUZONE TRIVALENT; 6MO+) (IIV3) 03/16/2011 Covid [employer] primary monoval ent 12+ yr 0.3mL Purple cap 05/08/2020,04/16/2020 DTaP VACCINE IM (6wk-6yrs) 05/13/2007,,2002,08/25,2002 FLU VACCINE TRI IIV3 SPLIT P F IM (FLUVIRIN) 02/09/2013 HEP A PEDS 2 DOSE 10/11/2014,09/29/2013 HEP B VACCINE, PED/ADOL 2002,2002, HIB BOOSTER 07/14/2003, 3,2002,07/28 Human Papilloma Virus James valent Vaccine 10/11/2014,11/27/2013,09/29/2013 INFLUENZA A P0L8-54 VACCINE 01/11/2009 INFLUENZA VACCINE 12/16/2008, 5,01/07/2003,12/03 INFLUENZA VACCINE, QUADR. (A FLURIA, FLUZONE QUADRIVALENT; 6MO+) (IIV4) 11/27/2013 INFLUENZA VACCINE, QUADR. (F LUZONE; FLULAVAL; FLUARIX; AFLURIA QUADRIVALENT; 6MO+), 0.5 ML (IIV4) 11/13/2019,12/19/2018,12/13/2017,11/30,11/28/2015 MENINGOCOCCAL B RECOMBINANT, 2 OR 3 DOSE, IM 05/27/2020,11/13/2019 MENINGOCOCCAL CONJUGATE (MCV4P) 12/19/2018,09/29 MMR 08/16/2019,05/13/2007,07/14/2003 PNEUMOCOCCAL CONJ, PEDS 07/14/2003,12/03,2002,07/28 POLIO IPV 05/13/2007, 4,2002,06/29 PPD 05/13/2007,02/08/2003 TDAP (7yrs+) 09/29/2013 VARICELLA 05/13/2007,2003 Social History Tobacco Use Types Packs/Day Years [...] Comments Blood Pressure 100/78 02/17/2020 9:35 AM HOSPITAL SECURITY OFFICER Pulse 103 01/30/2016 2:39 PM HOSPITAL SECURITY OFFICER Temperature 36.6 C (97.9 F) 05/27/2020 3:05 PM CDT Respiratory Rate - - Oxygen Saturation 100% 01/30/2016 2:39 PM HOSPITAL SECURITY OFFICER Inhaled Oxygen Concentration - - Weight 72.2 kg (159 lb 2.8 oz) 02/17/2020 9:35 A M HOSPITAL SECURITY OFFICER Height 160.4 cm (5' 3.15 ) 02/17/2020 9:35 AM CS T Body Mass Index 28.06 02/17/2020 9:35 AM HOSPITAL SECURITY OFFICER Plan of Treatment Not on file Goals Goal Patient Goal Type Associated Problems Recent Progress Patient-Stated? Author Use safety retraint in car Lifestyle On track( 020 1:57 PM CDT) Kassie Michelle Care Teams Residential Remodeling Subcontractor Relationship Specialty Start Date End Date Bradley Dennis MD PCP - Pediatrics 08/31/09 Marine Clark DO [address] [place] [address] PCP - General Pediatrics 11/12/19
--- OUTSIDE RECORDS SUMMARY | 2024-05-03 17:23 | XMS_ITS | Clinical Summary ---
Author Organization [facility] Address [address] [place] [address] Care Team Providers Care Automatic Pinsetter Mechanic Name Role Phone Provider, None Primary Care Provider Unavailabl e Allergies Active Allergy Reactions Criticality Noted Date Comments Sulfa Antibiotics Hives 09/23/2023 Medications fluconazole (DIFLUCAN) 150 MG Tablet Take at onset of symptoms. Repeat in 4 days if needed 2 Tablet 4 Active Additional Information Patient not taking.Reported on 03/29/2024 SERTRALINE HCL POIndications:A cute cough Take by mouth. Acti ve METFORMIN HCL PO Take by mouth. Activ e guaiFENesin (MUCINEX PO) Take by mouth. Ac tive Acetaminophen (TYLENOL PO) Take by mouth. Ac tive fluconazole (DIFLUCAN) 150 MG TabletIndicatio ns:Pneumonia due to infectious organism, unspecified laterality, unspecified part of lung Take at onset of symptoms. Repeat in 4 days if needed 2 Tablet 5 Active albuterol 108 (90 Base) MCG/ACT Aerosol SolutionIndicat ions:Pneumonia due to infectious organism, unspecified laterality, unspecified part of lung take 1-2 Puffs by inhalation every 4 hours as needed for Wheezing or Cough for up to 30 days. 8 g 5 05/08/19 25 Active benzonatate (TESSALON) 100 MG CapsuleIndicati ons:Acute cough Take 1 Capsule by mouth 3 times daily as needed for Cough for up to 10 days. 30 Capsule 5 04/08/19 25 predniSONE (DELTASONE) 20 MG TabletIndicatio ns:Acute cough Take 2 Tablets by mouth daily for 5 days. 10 Tablet 5 04/03/19 25 azithromycin (Zithromax Z-Kirill) 250 MG TabletIndicatio ns:Pneumonia due to infectious organism, unspecified laterality, unspecified part of lung 2 tab(s) daily for 1 day, then 1 tab(s) daily for days 2-5. 6 Tablet 5 04/13/19 25 Active Problems No known active problems Encounters Date Type Department Care Team Description 04/07/2024 6:00 PM DYE TUB TENDER Urgent Care Visit [facility] [address] [place] [phone] Niurka Mims, LEATHER GOODS MAKER, ASTRONOMY DEPARTMENT CHAIR Pneumonia due to infectious organism, unspecified laterality, unspecified part of lung (Primary Dx) Discharge Disposition: Discharged to home or Selfcare 04/07/2024 Travel 04/01/2024 Telephone [facility] [address] [place] [phone] Elvira Nuñez [employer]ATHER GOODS MAKER, ASTRONOMY DEPARTMENT CHAIR 03/29/2024 8:45 AM DYE TUB TENDER Urgent Care Visit [facility] [address] [place] [phone] Loren Carrasco, LEATHER GOODS MAKER, ASTRONOMY DEPARTMENT CHAIR Acute cough (Primary Dx) Discharge Disposition: Discharged to home or Selfcare 03/29/2024 Travel from Last 3 Months Social History Tobacco Use Types Packs/Day Years Used Date Smoking Tobacco: Never Smokeless Tobacco: Never Tobacco Cessation:Counseling Given: Not Answered Alcohol Use Standard Drinks/Week Comments Never 0 (1 standard drink = 0.6 oz pur e alcohol) Comments No Sex and Gender Information Value Date Recorded Sex Assigned at Not on file Legal Sex Female 6:42 AM CDT Gender Identity Not on file Sexual Orientation Not on file Last Filed Vital Signs Vital Sign Reading Time Taken Comments Blood Pressure 123/84 04/07/2024 6:05 PM DYE TUB TENDER Pulse 104 04/07/2024 6:05 PM DYE TUB TENDER Temperature 36.4 C (97.5 F) 04/07/2024 6:05 PM DYE TUB TENDER Respiratory Rate 20 04/07/2024 6:05 PM DYE TUB TENDER Oxygen Saturation 97% 04/07/2024 6:05 PM DYE TUB TENDER Inhaled Oxygen Concentration - - Weight 99.8 kg (220 lb) 03/29/2024 8:47 AM DYE TUB TENDER Height 157.5 cm (5' 2 ) 09/23/2023 11:23 AM CDT Body Mass Index 40.24 09/23/2023 11:23 AM CDT Plan of Treatment Health Maintenance Due Date Last Done Comments Hepatitis C Virus (HCV) Screening 2002 Human Papillomavirus (HPV) Immunization (1 - 3-dose series) 2017 Meningococcal B Immunization (1 of 2 - Standard) 2018 Hepatitis B Immunization (1 of 3 - 19+ 3-dose series) 2021 Pap Smear 2023 Influenza Immunization (#1) 2023 11/25/2020 SARS-COV-2 Immunization ( season) 2023 01/09/2021, 05/08/2020, 04/16/2020 Respiratory Syncytial Virus (RSV) Immunization (Adult) (1 - 1-dose 75+ series) 2077 TdaP Immunization Completed 07/26/2022 Meningococcal Immunization (ACWY) Aged Out No longer eligible b ased on patient's age to complete this topic Pneumococcal Immunization Combined Aged Out No longer eligible b ased on patient's age to complete this topic Rotavirus Immunization Aged Out No lo nger eligible based on patient's age to complete this topic Insurance [facility] [place] [address] Care Teams Automatic Pinsetter Mechanic Relationship Specialty Start Date End Date Provider, None [place] PCP - General 09/23/23
--- OUTSIDE RECORDS SUMMARY | 2024-05-03 17:24 | XMS_ITS | Patient Health Summary ---
Author Organization [facility] Address [address] [place] [address] Care Team Providers Care Magazine Filler Name Role Phone Bradley Dennis MD Unavailable [phone] Marine Clark DO Primary Care Provider [phone] Note from [facility],non-owned Affiliates and Associated Physician Practices is amultiple site organization consisting of ambulatory clinics and hospital sitesin [place], [place], [place] and [place]. This disclosure is being madepursuant to the Care Everywhere program and may not contain all information available regarding this patient. Last updated 17.[facility] Allergies * Sulfa Drugs(Mom and Sister are allergic. Mom want to keep her away from this drug.) Medications * Be aware that medications may not be up to date on this document. Alwaysverify current medications with the patient. * albuterol HFA (PROVENTIL;VENTOLIN;PROAIR) 108 (90 BASE) MCG/ACT inhaler (Started 01/30/2016) Inhale 2 Puffs by mouth every 4 hours as needed for Shortness of Breath or Cough (use 10 minutes before exercise) 3 refills remaining * naproxen (NAPROSYN) 500 MG tablet(Started 04/08/2017) Take 1 tablet by mouth 2 times daily as needed for Pain (headache) 1 refill remaining * norgestim-eth estrad triphasic (TRI-SPRINTEC) tablet(Started 12/17/2019) Take 1 tablet by mouth once daily * ferrous sulfate 325 (65 FE) MG tablet(Started 07/01/2020) Take 1 (one) tablet by mouth 2 times daily with morning and evening meal 2 refills by 07/01/2021 Active Problems Problem Noted Date Diagnosed Date Mixed headache 04/10/2017 Overweight 10/07/2013 Screening for condition 07/21/2012 Well child visit 08/16/2010 Lactose intolerance 08/31/2009 Resolved Problems Problem Noted Date Diagnosed Date Resolved Date AOM (acute otitis media) 12/31/2012 Plantar wart 08/16/2010 07/18/2016 UTI (urinary tract infection) 08/31/2009 07/18/2016 Tibia fracture 09/19/2003 07/18/2016 Immunizations * INFLUENZA VACCINE, TRIV. (AFLURIA, FLUZONE TRIVALENT; 6MO+) (IIV3)(Given 03/16/2011) * Cliq primary monovalent 12+ yr 0.3mL Purple cap(Given 05/08/2020, 04/16/2020) * DTaP VACCINE IM (6wk-6yrs)(Given 05/13/2007, 10/14/2003, 2002, 2002, 2002) * FLU VACCINE TRI IIV3 SPLIT PF IM (FLUVIRIN)(Given 02/09/2013) * HEP A PEDS 2 DOSE(Given 10/11/2014, 09/29/2013) * HEP B VACCINE, PED/ADOL(Given 2002, 2002, 2002) * HIB BOOSTER(Given 07/14/2003, 2002, 2002, 2002) * Human Papilloma Virus Quadrivalent Vaccine(Given 10/11/2014, 11/27/2013, 09/29/2013) * INFLUENZA A G0Y6-43 VACCINE(Given 01/11/2009) * INFLUENZA VACCINE(Given 12/16/2008, 01/10/2005, 01/07/2003, 2002) * INFLUENZA VACCINE, QUADR. (AFLURIA, FLUZONE QUADRIVALENT; 6MO+) (IIV4)(Given 11/27/2013) * INFLUENZA VACCINE, QUADR. (FLUZONE; FLULAVAL; FLUARIX; AFLURIA QUADRIVALENT; 6MO+), 0.5 ML (IIV4)(Given 11/13/2019, 12/19/2018, 12/13/2017, 11/30/2016, 11/28/2015) * MENINGOCOCCAL B RECOMBINANT, 2 OR 3 DOSE, IM(Given 05/27/2020, 11/13/2019) * MENINGOCOCCAL CONJUGATE (MCV4P)(Given 12/19/2018, 09/29/2013) * MMR(Given 08/16/2019, 05/13/2007, 07/14/2003) * PNEUMOCOCCAL CONJ, PEDS(Given 07/14/2003, 2002, 2002, 2002) * POLIO IPV(Given 05/13/2007, 10/14/2003, 2002, 2002) * PPD(Given 05/13/2007, 02/08/2003) * TDAP (7yrs+)(Given 09/29/2013) * VARICELLA(Given 05/13/2007, 2003) Social History Tobacco Use Types Packs/Day Years [...] Comments Blood Pressure 100/78 02/17/2020 9:35 AM LAUNDRY ATTENDANT Pulse 103 01/30/2016 2:39 PM LAUNDRY ATTENDANT Temperature 36.6 C (97.9 F) 05/27/2020 3:05 PM CDT Respiratory Rate - - Oxygen Saturation 100% 01/30/2016 2:39 PM LAUNDRY ATTENDANT Inhaled Oxygen Concentration - - Weight 72.2 kg (159 lb 2.8 oz) 02/17/2020 9:35 A M LAUNDRY ATTENDANT Height 160.4 cm (5' 3.15 ) 02/17/2020 9:35 AM CS T Body Mass Index 28.06 02/17/2020 9:35 AM LAUNDRY ATTENDANT Procedures * T4 FREE(Performed 02/17/2020) Performed for Chronic tension-type headache, intractable * TSH(Performed 02/17/2020) Performed for Chronic tension-type headache, intractable * VITAMIN D 25-HYDROXY(Performed 02/17/2020) Performed for Chronic tension-type headache, intractable * MAGNESIUM BLOOD(Performed 02/17/2020) Performed for Chronic tension-type headache, intractable * COMPREHENSIVE METABOLIC PANEL(Performed 02/17/2020) Performed for Chronic tension-type headache, intractable * CBC W AUTO DIFFERENTIAL(Performed 02/17/2020) Performed for Chronic tension-type headache, intractable * FERRITIN(Performed 02/17/2020) Performed for Chronic tension-type headache, intractable * HCG URINE QUALITATIVE - POINT OF CARE (AMB) STL(Performed 11/13/2019) Performed for Dysmenorrhea * HEMOGLOBIN - POINT OF CARE (AMB)(Performed 12/19/2018) Performed for Screening for deficiency anemia * HEMOGLOBIN - POINT OF CARE (AMB)(Performed 12/13/2017) Performed for Well adolescent visit * INSULIN LEVEL(Performed 12/04/2016) Performed for Weight gain * FSH + LH PANEL(Performed 12/04/2016) Performed for Weight gain * TSH(Performed 12/04/2016) Performed for Weight gain * T4 TOTAL(Performed 12/04/2016) Performed for Weight gain * CBC W AUTO DIFFERENTIAL(Performed 12/04/2016) Performed for Weight gain * URINALYSIS - POINT OF CARE(Performed 07/18/2016) Performed for Headache, unspecified headache type * HEMOGLOBIN - POINT OF CARE (AMB)(Performed 07/18/2016) Performed for Screening, anemia, deficiency, iron * HEMOGLOBIN - POINT OF CARE (AMB)(Performed 11/28/2015) Performed for Screening for deficiency anemia * IMAGING/RADIOLOGY/XRAY RESULTS ORDER(Performed 10/22/2012) * LIPID PROFILE+GLUCOSE - POINT OF CARE (AMB)(Performed 07/21/2012) Performed for Screening for lipoid disorders, Overweight Results * VITAMIN D (25-HYDROXY) (02/17/2020 11:22 AM LAUNDRY ATTENDANT) Vitamin D, 25 Hydroxy 42.3 20 - 100 ng/mL 02/17/2020 12:32 PM LAUNDRY ATTENDANT [facility] Blood BLOOD SPECIMEN / Unknown Lab Venipuncture / Unknown 02/17/2020 11:22 AM LAUNDRY ATTENDANT 02/17/2020 11:44 AM LAUNDRY ATTENDANT Narrative [facility] - 02/17/2020 12:32 PM LAUNDRY ATTENDANT Vitamin D Status: Deficient <10 ng/mL Borderline 10-20 ng/mL Sufficient >20 ng/mL Toxic >100 ng/mL Edyta Bolton HISTOLOGY TECH-ALTERATION TAILOR APPRENTICE LAB - CHEM ISTRY ORDERABLES [facility] [address] [place] [address] * (ABNORMAL) CBC W DIFFERENTIAL (02/17/2020 11:22 AM [facility]) Only the most recent of2 resultswithin the time period is included. WBC 7.1 4.5 - 11.0 x10E9/L 02/17/2020 11:50 AM [facility] WBC Corrected 02/17/2020 11:50 AM [facility] RBC 5.14(H) 4.10 - 5.10 x10E12/L 02/17/2020 11:50 AM [facility] Hemoglobin 13.5 12.0 - 16.0 gm/dL 02/17/2020 11:50 AM [facility] Hematocrit 42.3 36.0 - 47.0 % 02/17/2020 11:50 AM [facility] MCV 82.3 78.0 - 98.0 fl 02/17/2020 11:50 AM [facility] MCH 26.3 25.0 - 35.0 pg 02/17/2020 11:50 AM [facility] MCHC 31.9 31.0 - 37.0 gm/dL 02/17/2020 11:50 AM [facility] Platelet Count 321 100 - 400 x10E9/L 02/17/2020 11:50 AM [facility] RDW-CV 14.4(H) 11.5 - 14.0 % 02/17/2020 11:50 AM [facility] MPV 10.6(H) 6.0 - 9.5 fl 02/17/2020 11:50 AM [facility] Neutrophils % 59.8 31.0 - 78.0 % 02/17/2020 11:50 AM [facility] Lymphocytes % 34.6 13.0 - 54.0 % 02/17/2020 11:50 AM [facility] Monocytes % 5.0 4.0 - 13.0 % 02/17/2020 11:50 AM [facility] Eosinophils % 0.1 0.0 - 8.0 % 02/17/2020 11:50 AM [facility] Basophils % 0.4 % 02/17/2020 11:50 AM [facility] Immature Granulocytes 0.1 % 02/17/2020 11:50 AM [facility] Neutrophil Absolute 4.22 1.4 - 8.58 x10E9/L 02/17/2020 11:50 AM [facility] Lymphocytes Absolute 2.44 0.59 - 5.94 x10E9/L 02/17/2020 11:50 AM [facility] Monocytes Absolute 0.35 0.18 - 1.43 x10E9/L 02/17/2020 11:50 AM [facility] Eosinophils Absolute 0.01 0 - 0.88 x10E9/L 02/17/2020 11:50 AM [facility] Basophils Absolute 0.03 0 - 0.22 x10E9/L 02/17/2020 11:50 AM [facility] Immature Granulocytes Absolute 0.01 0 - 0.11 x10E9/L 02/17/2020 11:50 AM [facility] nRBC Auto 0 /100 WBC 02/17/2020 11:50 AM [facility] Blood BLOOD SPECIMEN / Unknown Lab Venipuncture / Unknown 02/17/2020 11:22 AM LAUNDRY ATTENDANT 02/17/2020 11:44 AM [facility] Edyta Bolton HISTOLOGY TECH-ALTERATION TAILOR APPRENTICE LAB - DONOVAN TOLOGY ORDERABLES Performing Organization Address City/State/[facility] Co de Phone Number [facility] [address] [place] [address] * (ABNORMAL) COMPREHENSIVE METABOLIC PANEL (02/17/2020 11:22 AM [facility]) [facility] Glucose 94 70 - 105 mg/dL 02/17/2020 12:29 PM [facility] Sodium 139 136 - 145 mmol/L 02/17/2020 12:29 PM [facility] Potassium 3.0(L) 3.5 - 5.1 mmol/L 02/17/2020 12:29 PM [facility] Chloride 76(L) 98 - 107 mmol/L 02/17/2020 12:29 PM [facility] CO2 26 20 - 28 mmol/L 02/17/2020 12:29 PM [facility] Calcium 9.20 9.08 - 10.48 mg/dL 02/17/2020 12:29 PM [facility] Anion Gap 37(H) 5 - 20 mmol/L 02/17/2020 12:29 PM [facility] BUN 12.0 5.3 - 18.7 mg/dL 02/17/2020 12:29 PM [facility] Creatinine 0.73 0.61 - 1.07 mg/dL 02/17/2020 12:29 PM [facility] Alkaline Phosphatase 47(L) 100 - 390 U/L 02/17/2020 12:29 PM [facility] ALT 27 8 - 65 U/L 02/17/2020 12:29 PM [facility] AST 26 3 - 35 U/L 02/17/2020 12:29 PM [facility] Protein Total 7.5 6.3 - 8.2 gm/dL 02/17/2020 12:29 PM [facility] Albumin 4.1 3.3 - 4.9 gm/dL 02/17/2020 12:29 PM [facility] Bilirubin Total 0.3 0.3 - 1.2 mg/dL 02/17/2020 12:29 PM [facility] eGFR by MDRD 02/17/2020 12:29 PM [facility] Comment: eGFR calculations are not performed for children under 18 years old. eGFR by MDRD 02/17/2020 12:29 PM [facility] Comment: eGFR calculations are not performed for children under 18 years old. Blood BLOOD SPECIMEN / Unknown Lab Venipuncture / Unknown 02/17/2020 11:22 AM LAUNDRY ATTENDANT 02/17/2020 11:44 AM [facility] Edyta Bolton HISTOLOGY TECH-ALTERATION TAILOR APPRENTICE LAB - CHEM ISTRY ORDERABLES [facility] [address] [place] [address] * MAGNESIUM BLOOD (02/17/2020 11:22 AM [facility]) Magnesium 1.8 1.7 - 2.3 mg/dL 02/17/2020 12:10 PM LAUNDRY ATTENDANT [facility] Blood BLOOD SPECIMEN / Unknown Lab Venipuncture / Unknown 02/17/2020 11:22 AM LAUNDRY ATTENDANT 02/17/2020 11:44 AM LAUNDRY ATTENDANT Edyta Quinterodagmarjaida HISTOLOGY TECH-ALTERATION TAILOR APPRENTICE LAB - CHEM ISTRY ORDERABLES Performing Organization Address City/[facility] Co de Phone Number [facility] [address] [place] [phone] * TSH (02/17/2020 11:22 AM LAUNDRY ATTENDANT) Only the most recent of2 resultswithin the time period is included. TSH 0.82 0.35 - 4.95 uIU/mL 02/17/2020 12:51 PM LAUNDRY ATTENDANT [facility] Blood BLOOD SPECIMEN / Unknown Lab Venipuncture / Unknown 02/17/2020 11:22 AM LAUNDRY ATTENDANT 02/17/2020 11:44 AM LAUNDRY ATTENDANT Edyta Quinterodagmarjaida HISTOLOGY TECH-ALTERATION TAILOR APPRENTICE LAB - CHEM ISTRY ORDERABLES Performing Organization Address [facility] Co de Phone Number [facility] [address] [place] [phone] * T4 FREE (02/17/2020 11:22 AM LAUNDRY ATTENDANT) T4 Free 1.07 0.70 - 1.48 ng/dL 02/17/2020 12:34 PM LAUNDRY ATTENDANT [facility] Blood BLOOD SPECIMEN / Unknown Lab Venipuncture / Unknown 02/17/2020 11:22 AM LAUNDRY ATTENDANT 02/17/2020 11:44 AM LAUNDRY ATTENDANT Edyta Quinterodagmarjaida HISTOLOGY TECH-ALTERATION TAILOR APPRENTICE LAB - CHEM ISTRY ORDERABLES Performing Organization Address City/[facility] Co de Phone Number [facility] [address] [place] [phone] * (ABNORMAL) FERRITIN (02/17/2020 11:21 AM LAUNDRY ATTENDANT) Ferritin <10(L) 10 - 120 ng/mL 02/17/2020 12:29 PM LAUNDRY ATTENDANT [facility] Comment:Attention clinician: Reference Range change. Blood BLOOD SPECIMEN / Unknown Lab Venipuncture / Unknown 02/17/2020 11:21 AM LAUNDRY ATTENDANT 02/17/2020 11:44 AM LAUNDRY ATTENDANT Edyta Bolton HISTOLOGY TECH-ALTERATION TAILOR APPRENTICE LAB - CHEM ISTRY ORDERABLES [facility] [place] [address] * HCG URINE QUALITATIVE - POINT OF CARE (AMB) STL (11/13/2019) HCG Qual Urine Negative Negative HCG Urine QC NEG NEG NEGATIVE - POSITIVE HCG Urine QC POS Pos NEGATIVE - POSITIVE Expiration Date 01/17/21 Lot # [id number] Urine URINE / Unknown 11/13/2019 Rhythm Clark DO LAB - POINT OF CARE ORDERABLES * HEMOGLOBIN - POINT OF CARE (AMB) (12/19/2018) Only the most recent of4 resultswithin the time period is included. Hemoglobin POCT 12.8 11.0 - 14.0 gm/dL Blood BLOOD SPECIMEN / Unknown 12/19/2018 Deana Linda HISTOLOGY TECH-ALTERATION TAILOR APPRENTICE LAB - POINT OF CA RE ORDERABLES * INSULIN LEVEL (12/04/2016 3:41 PM CDT) Insulin Fasting 16.7 2.6 - 24.9 uIU/mL [facility] INSURANCE BILL Blood BLOOD SPECIMEN / Unknown 12/04/2016 3:41 PM CDT 12/04/2016 Narrative Resulting Agency Comment [facility] [address] [id number] Bea Teran MD LAB - CHEMISTRY SHILA ROSA [facility] INSURANCE BILL [address] [place] [address] * FSH + LH PANEL (12/04/2016 3:41 PM CDT) LH 4.2 mIU/mL [facility] INSURANCE BILL Comment: <24 hours <0.2 - 1.0 1 day <0.2 - 0.8 2 days <0.2 - 0.6 3 days <0.2 - 2.7 4 days <0.2 - 1.7 5 days <0.2 - 3.1 6 days 0.4 - 6.4 7 days <0.2 - 5.6 8 - 30 days <0.2 - 7.8 1 - 12 month <0.2 - 0.4 1 - 4 years <0.2 - 0.5 5 - 9 years <0.2 - 3.1 10 - 12 years <0.2 - 11.9 13 - 16 years 0.5 - 41.7 . Adult Female: Follicular phase 2.4 - 12.6 Ovulation phase 14.0 - 95.6 Luteal phase 1.0 - 11.4 FSH 4.1 mIU/mL [facility] INSURANCE BILL Comment: <24 hours <0.2 - 0.8 1 day <0.2 - 0.8 2 days <0.2 - 0.8 3 days <0.2 - 2.4 4 days <0.2 - 2.3 5 days <0.2 - 3.4 6 days <0.2 - 4.5 7 days <0.2 - 21.4 8 - 30 days <0.2 - 22.2 1 - 12 months Not Estab. 1 - 4 years 0.2 - 11.1 5 - 9 years 0.3 - 11.1 10 - 12 years 2.1 - 11.1 13 - 16 years 1.6 - 17.0 . Adult Female: Follicular phase 3.5 - 12.5 Ovulation phase 4.7 - 21.5 Luteal phase 1.7 - 7.7 Blood BLOOD SPECIMEN / Unknown 12/04/2016 3:41 PM CDT 12/04/2016 Narrative Resulting Agency Comment [facility] [address] [phone] Bea Teran MD LAB - CHEMISTRY SHILA ROSA [facility] INSURANCE BILL [address] [place] [address] * T4 TOTAL (12/04/2016 3:41 PM CDT) Pathologist [facility] T4 Total 8.1 4.5 - 12.0 ug/dL [facility] INSURANCE BILL Blood BLOOD SPECIMEN / Unknown 12/04/2016 3:41 PM CDT 12/04/2016 Narrative Resulting Agency Comment [facility] [address] [phone] Bea Teran MD LAB - CHEMISTRY SHILA ROSA [facility] INSURANCE BILL [address] [place] [address] * URINALYSIS - POINT OF CARE (07/18/2016) Pathologist [facility] Clarity UA POCT clear Color UA POCT yellow Leukocyte UA - Negative Nitrite UA POCT - Negative Urobilinogen UA 0.2 0.1 - 1.0 Protein UA POCT 15 Negative pH UA 7.0 5.0 - 8.0 pH units Blood UA - Negative Specific [place] UA POCT 1.010 1.002 - 1.030 Ketone UA - Negative Bilirubin UA POCT - Negative Glucose UA - Negative Urine URINE / Unknown 07/18/2016 Deana Linda HISTOLOGY TECH-ALTERATION TAILOR APPRENTICE LAB - POINT OF CA RE ORDERABLES * IMAGING/RADIOLOGY/XRAY RESULTS ORDER (10/22/2012) Anatomical Region Laterality Modality Other Scanned Document IMAGING * LIPID PROFILE+GLUCOSE - POINT OF CARE (AMB) (07/21/2012 4:28 PM CDT) Pathologist [facility] QC Verified yes Yes Cholesterol POCT 177 >200 mg/dl HDL POCT 50 <40 - >60 mg/dL Triglycerides POCT 170 >130 mg/dL LDL 92 >130 mg/dl Non HDL Cholesterol POCT 126 >145 mg/dL Total Cholesterol/HDL Ratio POCT 3.5 >6.0 Glucose 91 >126 mg/dL BLOOD SPECIMEN / Unknown Bea Teran MD LAB - POINT OF CARE ORDERABLES Care Teams Magazine Filler Relationship Specialty Start Date End Date Bradley Dennis MD PCP - Pediatrics 08/31/09 Marine Clark DO [address] [place] [phone] PCP - General Pediatrics 11/12/19
[2024-05-03 17:31] VITALS: BP 117/91; PULSE 104; RESP 20; TEMP 36.5; O2SAT 99
--- NOTE | 2024-05-03 17:53 | ED_ITS ---
HPI - URI/Sore Throat General Chief Complaint: Upper Respiratory Infection Stated Complaint: sinus infection Time Seen by Provider: 05/03/24 17:38 Source: patient and RN notes reviewed Mode of arrival: ambulatory Limitations: no limitations History of Present Illness HPI Narrative: Patient presents today with a 5 day history of nasal congestion and sinus pressure, cough, headache. Denies fever or shortness of breath. She has tried Tylenol, Mucinex, Excedrin, and an allergy medication with mild relief. She was treated for pneumonia/bronchitis last month by her PCP with azithromycin and states her symptoms had fully resolved prior to onset of current symptoms. Related Data Home Medications ?Medication ?Instructions ?Recorded ?Confirmed ?Last Taken ?Type albuterol sulfate 90 mcg/actuation inhalation 05/03/24 Unknown History aerosol inhaler Allergies Allergy/AdvReac Type Severity Reaction Status Date / Time prednisone Allergy Mild Rash Verified 05/03/24 17:40 Sulfa (Sulfonamide Allergy Mild Rash Verified 05/03/24 17:31 Antibiotics) Review of Systems Review of Systems: CONSTITUTIONAL: Denies body aches, fever, chills, or sweats. EYES: Denies visual changes, redness, or discharge. ENT: Denies rhinorrhea, sore throat, or otalgia.+ congestion, sinus pressure CARDIOVASCULAR: Denies chest pain, palpitations, or edema. RESPIRATORY: Denies dyspnea.+ cough GASTROINTESTINAL: Denies abdominal pain, nausea, vomiting, or diarrhea. GENITOURINARY: Denies dysuria or hematuria. SKIN: Denies rash, itching, or wounds. MUSCULOSKELETAL: Denies back pain, joint pain, or myalgia. NEUROLOGIC: Denies numbness, tingling, or weakness.+ headache PSYCH: Denies depression or anxiety. [facility] Past Medical History Medical History Allergies Anxiety Chronic headache Surgical History Surgical History No history of previous surgery Family History Family History Father Primary cancer of kidney Mother Hyperlipidemia Grandparent Heart disease Alcoholism Carcinoma of colon Social History Social History Social History: Patient feels very comfortable filling in medical forms. Smoking status: Never smoker Alcohol intake: current Substance use: never Do You Feel Safe in your Home?: Yes Lack of Transportation: No Lack of Food: Never True Current Housing: I Have Housing Concerned About Future Housing: No Difficulty Paying Gas/Electric Bills: No Difficulty Paying for Meds: No Currently Unemployed: No Education: High School Diploma/GED Difficulty w/ Childcare or Family Care: No Living arrangements: with family Occupation/Education: student Additional occupation/education comments: [employer] student Spiritual care concerns: No Comments At time of signature, I have reviewed and agree with nursing past medical, surgical, social and family history unless otherwise noted. Please see nursing chart for further information. There is no relevant family history pertinent to the presenting complaint Exam Narrative: GENERAL: Well-appearing, well-nourished, and in no acute distress. HEAD: Normocephalic, atraumatic. EYES: EOMI. No redness or drainage. Conjunctivae normal. ENT: Mucous membranes pink and moist. Nares congested with rhinorrhea. Bilateral nasal turbinates are edematous. TMs normal bilaterally. Throat normal. Uvula midline. NECK: Normal AROM. Supple. No lymphadenopathy. CHEST: No respiratory distress. Clear to auscultation. HEART: Regular rate and rhythm. No murmur appreciated. EXTREMITIES: Normal range of motion. No edema. SKIN: Warm, dry, no rash. Capillary refill normal. Normal skin turgor. NEURO: No focal deficits. Alert and oriented x3. Gait steady. PSYCH: Normal affect. No signs of depression or anxiety. Course Course Level of Care: Express Care Visit Vital Signs Vital signs: Vital Signs Temperature 97.7 F 05/03/24 17:31 Pulse Rate 104 H 05/03/24 17:31 Respiratory Rate 20 05/03/24 17:31 Blood Pressure 117/91 H 05/03/24 17:31 Pulse Oximetry 99 05/03/24 17:31 Oxygen Delivery Room Air 05/03/24 17:31 Temperature 97.7 F 05/03/24 17:31 Pulse Rate 104 H 05/03/24 17:31 Respiratory Rate 20 05/03/24 17:31 Blood Pressure 117/91 H 05/03/24 17:31 Pulse Oximetry 99 05/03/24 17:31 Oxygen Delivery Room Air 05/03/24 17:31 Reviewed MDM - URI/Sore Throat MDM Narrative Medical decision making narrative: COVID and influenza negative. Symptoms likely viral in etiology. Discussed [id number]-sukizit medication use and duration of illness. No prescription medications indicated at this time. Anticipatory guidance given. Differential Diagnosis Differential diagnosis: Likely upper respiratory infection, sinusitis, viral infection, bronchitis, influenza and other (COVID) Lab Data Attestation: I reviewed the patient's lab results. Lab results narrative: COVID and influenza negative Critical Care Time Critical Care Time Critical Care Time: No Discharge Plan Discharge Clinical Impression: Upper respiratory infection Qualifiers: URI type: unspecified URI Qualified Code(s): J06.9 - Acute upper respiratory infection, unspecified Patient Disposition: Home, Self-Care Condition: Stable Instructions: Upper Respiratory Infection (DC) Additional Instructions: Your COVID and influenza tests are negative today. Your symptoms are likely due to a viral illness, which is not treated with antibiotics. Virus symptoms can last for up to 7-10days. Take Tylenol or ibuprofen for pain or fever. Continue Mucinex for cough. Consider Sudafed if needed for congestion and sinus pressure. Rest and stay hydrated. Follow up with your PCP in 5-7 days if symptoms are not improving. Go to the ER immediately if you develop shortness of breath, difficulty swallowing, or any other concerning symptoms. Your blood pressure was elevated above 120/80 today at Urgent Care. This puts you above the threshold for follow up. Please schedule a followup visit with your personal physician as soon as possible, for further evaluation and treatment. Even blood pressure exceeding 120/80 may indicate pre-hypertension. Patient Language: Prydeinig Prescriptions: No Action albuterol sulfate 90 mcg/actuation HFA aerosol inhaler INHALATION norgestimate-ethinyl estradiol 0.18/0.215/0.25 mg-35 mcg (28) tablet 1 tablet PO DAILY Qty: 84 3RF sertraline 50 mg tablet 50 mg PO DAILY Qty: 90 1RF metformin 500 mg tablet extended release 24 hr 500 mg PO DAILY Qty: 90 0RF Follow-up/Referrals: Maren Roman APRN [Primary Care Provider] - Time of Disposition: 17:55
[2024-05-03 17:59] LABS: EDINFLUASCREEN Negative (Negative); EDINFLUBSCREEN Negative (Negative)
[2024-05-03 17:59] LABS: EDCOVIDSCREEN Negative (Negative)
== END 2024-05-03 17:58 | disposition home or self-care (01) ==
PROVIDERS: Emergency Provider Nurse Practitioner; PCP Nurse Practitioner Family
DX: J06.9 Acute upper respiratory infection, unspecified (principal); Z20.822 Contact with and (suspected) exposure to COVID-19
CPT/HCPCS: 87426; 87804; 99212; G0463

== ENCOUNTER 2024-07-09 17:51 | Emergency (ER) | payer OTHER, SELFPAY ==
--- OUTSIDE RECORDS SUMMARY | 2024-07-09 17:53 | XMS_ITS | Clinical Summary ---
Author Organization [facility] Address [address] [place] [address] Care Team Providers Care Process Control Programmer Name Role Phone Provider, None Primary Care Provider Unavailabl e Allergies Active Allergy Reactions Criticality Noted Date Comments Sulfa Antibiotics Hives 09/23/2023 Medications fluconazole (DIFLUCAN) 150 MG Tablet Take at onset of symptoms. Repeat in 4 days if needed 2 Tablet 4 Active Additional Information Patient not taking.Reported on 03/29/2024 SERTRALINE HCL POIndications:Ac [place] cough Take by mouth. Activ e METFORMIN HCL PO Take by mouth. Active guaiFENesin (MUCINEX PO) Take by mouth. Ac tive Acetaminophen (TYLENOL PO) Take by mouth. Ac tive fluconazole (DIFLUCAN) 150 MG TabletIndication s:Pneumonia due to infectious organism, unspecified laterality, unspecified part of lung Take at onset of symptoms. Repeat in 4 days if needed 2 Tablet 5 Active Active Problems No known active problems Social History Tobacco Use Types Packs/Day Years [...] Comments Blood Pressure 123/84 04/07/2024 6:05 PM [employer] Pulse 104 04/07/2024 6:05 PM [employer] Temperature 36.4 C (97.5 F) 04/07/2024 6:05 PM [employer] Respiratory Rate 20 04/07/2024 6:05 PM [employer] Oxygen Saturation 97% 04/07/2024 6:05 PM [employer] Inhaled Oxygen Concentration - - Weight 99.8 kg (220 lb) 03/29/2024 8:47 AM [employer] Height 157.5 cm (5' 2 ) 09/23/2023 [...] patient's age to complete this topic Insurance [facility] Care Teams Process Control Programmer Relationship Specialty Start Date End Date Provider, None JEANETTE PCP - General 09/23/23
--- OUTSIDE RECORDS SUMMARY | 2024-07-09 17:53 | XMS_ITS | Data Portability ---
Author Organization [facility] [employer], Main Office Address [address] [place] [address] Assessment Encounter Date Assessment Date Assessment LastModified [...] had a 9 minute TeleMedicine consultation via Dapper to discuss the following: Not available 01/18/2023 10:53:22 Plan of Treatment Reminders Order Date Submit Date Provider Last Modified By Organization Details Last Modified Time Details Appointments None recorded. Lab None recorded. Referral behavioral psychothera py referral 2022 023 [email or web address] Luz Monreal [facility], [address] [place] [address], [address], 4 08:49:57 physical therapist referral - right anterior knee pain 2022 023 [facility], [address], [place], [address], 18:15:04 Procedures None recorded. Surgeries None recorded. Imaging XR, knee - right anterior knee pain. 2022 023 [facility], [address], [place], [address], 16:59:45 Medication Orders sertraline 50 mg tablet 2023 024 [id number], [address] [facility], [place], [place], [id number], 4 09:46:04 sertraline 50 mg tablet 2022 023 [facility][id number], [address], [address], [place], [address], 3 10:53:53 Medrol (Kirill) 4 mg tablets in a dose pack 2022 023 [email or web address] [facility][id number], [address] [facility], [place], [place], [id number], 14:24:41 Patient TargetsNo targets recorded. Patient Instructions Encounter Date Encounter Id Patient Instructions Last Modified By Organization Details Last Modified Time 07/10/2022 [id number] FU prn knee pain right side. Not available 07/10/2022 12:36:06 01/18/2023 [id number] Due to the COVID-19 (Novel Coronavirus) pandemic, it is within this context (and with the understanding that this method of patient encounter is in the patient s best interest as well as the health and safety of other patients and the public) that telehealth is being provided for this patient encounter rather than a [id number]-xbzh visit. This patient encounter is appropriate at [...] the patient. Not available 01/18/2023 10:44:24 02/22/2023 [id number] fu with new provider in 3 mo, sooner if needed. Not available 02/22/2023 09:52:18 Reason for Referral Physical Therapist Referral for Pain of right knee joint right anterior knee pain Referring Physician: Maren Roman, [facility] Medicine, Encounter Date: 07/10/2022 Behavioral Psychotherapy Ref erral for Anxiety Referring Physician: Maren Roman [facility] Medicine, Encounter Date: 01/18/2023 Results Created Date [...] Care in Diabe pete(A DA). Not Available [facility] [address], [place], [address], 08/23/2021 02:53:00 08/23/19 22 08/23/2021 VITAM IN [...] /MS is recom chiquita d: order code 13802 (moreno ents >2yrs ). See Note 1 Note 1 For addit ional infor charlotte ortiz, armando e refer to http: //[facility] Riveraia gnost ics.c om/fa q/FAQ 199 (This link is being provi ded for infor charlotte bermudez/ arthur del angel purpo ses only. ) Not Available [facility] [address] [place], [address], 08/23/2021 02:52:59 08/23/19 22 08/23/2021 TSH W/REF JAMES TO FT4 TSH w/reflex to FT4 1.54 mIU/L normal Refer ence Range 1-19 Years 0.50- 4.30 Pregn denae Range s First trime ster 0.26- 2.66 Secon d trime ster 0.55- 2.73 Third trime ster 0.43- 2.91 Not Available [facility] [address] [place], [address], 08/23/2021 02:52:59 08/23/19 22 08/23/2021 VITAM IN [...] will have sympt oms. Not Available [facility] [address], [address], 08/23/2021 02:52:58 08/23/19 22 08/23/2021 CBC (INCL UDES DIFF/ PLT) white blood cell count 4.3 thous and/u L 3.8-10 .8 normal Not Available [facility] [address], [address], 08/23/2021 02:52:58 08/23/19 22 08/23/2021 CBC (INCL UDES DIFF/ PLT) red blood cell count 4.85 martin on/uL 3.80-5 .10 normal Not Available [facility] [address], [address], 08/23/2021 02:52:58 08/23/19 22 08/23/2021 CBC (INCL UDES DIFF/ PLT) hemoglobin 12.6 g/dL 11.7-1 5.5 normal Not Available [facility] [address], [address], 08/23/2021 02:52:58 08/23/19 22 08/23/2021 CBC (INCL UDES DIFF/ PLT) hematocrit 40.3 % 35.0-4 5.0 normal Not Available [facility] [address], [address], 08/23/2021 02:52:58 08/23/19 22 08/23/2021 CBC (INCL UDES DIFF/ PLT) MCV 83.1 fL 80.0-1 00.0 normal Not Available [facility] [address], [address], 08/23/2021 02:52:58 08/23/19 22 08/23/2021 CBC (INCL UDES DIFF/ PLT) MCH 26.0 pg 27.0-3 3.0 low Not Available [facility] [address] [place], [address], 08/23/2021 02:52:58 08/23/19 22 08/23/2021 CBC (INCL UDES DIFF/ PLT) MCHC 31.3 g/dL 32.0-3 6.0 low Not Available [address], [address], 08/23/2021 02:52:58 08/23/19 22 08/23/2021 CBC (INCL UDES DIFF/ PLT) RDW 14.1 % 11.0-1 5.0 normal Not Available [address], [address], 08/23/2021 02:52:58 08/23/19 22 08/23/2021 CBC (INCL UDES DIFF/ PLT) platelet count 382 thous and/u L 140-40 0 normal Not Available [address], [address], 08/23/2021 02:52:58 08/23/19 22 08/23/2021 CBC (INCL UDES DIFF/ PLT) MPV 10.0 fL 7.5-12 .5 normal Not Available [address], [address], 08/23/2021 02:52:58 08/23/19 22 08/23/2021 CBC (INCL UDES DIFF/ PLT) absolute neutrophils 1531 cells /uL 1500-7 800 normal Not Available [facility] [address], [address], 08/23/2021 02:52:58 08/23/19 22 08/23/2021 CBC (INCL UDES DIFF/ PLT) absolute lymphocytes 2369 cells /uL 850-39 00 normal Not Available [facility] [address], [address], 08/23/2021 02:52:58 08/23/19 22 08/23/2021 CBC (INCL UDES DIFF/ PLT) absolute monocytes 331 cells /uL 200-95 0 normal Not Available [address], [address], 08/23/2021 02:52:58 08/23/19 22 08/23/2021 CBC (INCL UDES DIFF/ PLT) absolute eosinophils 39 cells /uL 15-500 normal Not Available [facility] [address], [address], 08/23/2021 02:52:58 08/23/19 22 08/23/2021 CBC (INCL UDES DIFF/ PLT) absolute basophils 30 cells /uL 0-200 normal Not Available [address], [address], 08/23/2021 02:52:58 08/23/19 22 08/23/2021 CBC (INCL UDES DIFF/ PLT) neutrophils 35.6 % normal Not Available [address], [address], 08/23/2021 02:52:58 08/23/19 22 08/23/2021 CBC (INCL UDES DIFF/ PLT) lymphocytes 55.1 % normal Not Available [address], [address], 08/23/2021 02:52:58 08/23/19 22 08/23/2021 CBC (INCL UDES DIFF/ PLT) monocytes 7.7 % normal Not Available [facility] [address], [address], 08/23/2021 02:52:58 08/23/19 22 08/23/2021 CBC (INCL UDES DIFF/ PLT) eosinophils 0.9 % normal Not Available [facility] [address], [address], 08/23/2021 02:52:58 08/23/19 22 08/23/2021 CBC (INCL UDES DIFF/ PLT) basophils 0.7 % normal Not Available [address], [address], 08/23/2021 02:52:58 08/23/19 22 08/23/2021 COMPR EHENS LAURA METAB OLIC PANEL glucose 84 mg/dL 65-99 normal Fasti ng refer ence inter virgil Not Available [address], [address], 08/23/2021 02:52:57 08/23/19 22 08/23/2021 COMPR EHENS LAURA METAB OLIC PANEL urea nitrogen (BUN) 9 mg/dL 7-20 normal Not Available [address], [address], 08/23/2021 02:52:57 08/23/19 22 08/23/2021 COMPR EHENS LAURA METAB OLIC PANEL creatinine 0.76 mg/dL 0.50-1 .00 normal Not Available [address], [address], 08/23/2021 02:52:57 08/23/19 22 08/23/2021 COMPR EHENS LAURA METAB OLIC PANEL eGFR non-afr. kuwaiti 114 mL/mi n/1.7 3m2 > or = 60 normal Not Available [address], [address], 08/23/2021 02:52:57 08/23/19 22 08/23/2021 COMPR EHENS LAURA METAB OLIC PANEL eGFR 132 mL/mi n/1.7 3m2 > or = 60 normal Not Available [address], [address], 08/23/2021 02:52:57 08/23/19 22 08/23/2021 COMPR EHENS LAURA METAB OLIC PANEL BUN/creatini ne ratio not applic able (calc ) 6-22 Not Available [address], [address], 08/23/2021 02:52:57 08/23/19 22 08/23/2021 COMPR EHENS LAURA METAB OLIC PANEL sodium 140 mmol/ L 135-14 6 normal Not Available [address], [address], 08/23/2021 02:52:57 08/23/19 22 08/23/2021 COMPR EHENS LAURA METAB OLIC PANEL potassium 4.4 mmol/ L 3.8-5. 1 normal Not Available [address], [address], 08/23/2021 02:52:57 08/23/19 22 08/23/2021 COMPR EHENS LAURA METAB OLIC PANEL chloride 106 mmol/ L 98-110 normal Not Available [address], [address], 08/23/2021 02:52:57 08/23/19 22 08/23/2021 COMPR EHENS LAURA METAB OLIC PANEL carbon dioxide 25 mmol/ L 20-32 normal Not Available [address], [address], 08/23/2021 02:52:57 08/23/19 22 08/23/2021 COMPR EHENS LAURA METAB OLIC PANEL calcium 9.6 mg/dL 8.9-10 .4 normal Not Available [address], [address], 08/23/2021 02:52:57 08/23/19 22 08/23/2021 COMPR EHENS LAURA METAB OLIC PANEL protein, total 6.9 g/dL 6.3-8. 2 normal Not Available [address], [address], 08/23/2021 02:52:57 08/23/19 22 08/23/2021 COMPR EHENS LAURA METAB OLIC PANEL albumin 4.0 g/dL 3.6-5. 1 normal Not Available [address], [address], 08/23/2021 02:52:57 08/23/19 22 08/23/2021 COMPR EHENS LAURA METAB OLIC PANEL globulin 2.9 g/dL_ (calc ) 2.0-3. 8 normal Not Available [address], [address], 08/23/2021 02:52:57 08/23/19 22 08/23/2021 COMPR EHENS LAURA METAB OLIC PANEL albumin/glob ulin ratio 1.4 (calc ) 1.0-2. 5 normal Not Available [address], [address], 08/23/2021 02:52:57 08/23/19 22 08/23/2021 COMPR EHENS LAURA METAB OLIC PANEL bilirubin, total 0.4 mg/dL 0.2-1. 1 normal Not Available [address], [address], 08/23/2021 02:52:57 08/23/19 22 08/23/2021 COMPR EHENS LAURA METAB OLIC PANEL alkaline phosphatase 57 U/L 36-128 normal Not Available [address], [address], 08/23/2021 02:52:57 08/23/19 22 08/23/2021 COMPR EHENS LAURA METAB OLIC PANEL AST 23 U/L 12-32 normal Not Available [address], [address], 08/23/2021 02:52:57 08/23/19 22 08/23/2021 COMPR EHENS LAURA METAB OLIC PANEL ALT 29 U/L 5-32 normal Not Available [address] [place], [address], 08/23/2021 02:52:57 08/23/19 22 08/23/2021 MAGNE SIUM magnesium 2.0 mg/dL 1.5-2. 5 normal Not Available [address], [address], 08/23/2021 02:52:57 08/23/19 22 08/23/2021 LIPID PANEL , STAND MARJAN cholesterol, total 233 mg/dL <170 high Not Available [address], [address], 08/23/2021 02:52:56 08/23/19 22 08/23/2021 LIPID PANEL , STAND MARJAN HDL cholesterol 73 mg/dL >45 normal Not Available [address], [address], 08/23/2021 02:52:56 08/23/19 22 08/23/2021 LIPID PANEL , STAND MARJAN triglyceride s 98 mg/dL <90 high Not Available [address], [address], 08/23/2021 02:52:56 08/23/19 22 08/23/2021 LIPID PANEL [...] 2061- 2068 (http ://ed ucati on.Qu Aba [employer]. com/f aq/FA Q164) Not Available [address], [address], 08/23/2021 02:52:56 08/23/19 22 08/23/2021 LIPID PANEL , STAND MARJAN chol/HDLC ratio 3.2 (calc ) <5.0 normal Not Available [facility] [address], [place], [address], 08/23/2021 02:52:56 08/23/19 22 08/23/2021 LIPID PANEL , STAND MARJAN non HDL cholesterol 160 mg/dL _(yanet c) <120 high For patie nts with diabe pete plus 1 major ASCVD risk facto r, treat ing to a non-H DL-C goal of <100 mg/dL (LDL- C of <70 mg/dL ) is consi sin kenny c optio n. Not Available [facility] [address], [place], [address], 08/23/2021 02:52:56 07/11/19 23 07/10/2022 XR, knee No observ ation record ed. [email or web address] [facility] [address], [place], [address], 07/11/2022 09:41:44 Result Notes None recorded. Problems Name Problem SNOMED Code Status Onset Date Resolution Date Notes Provider Name and Address Organization Details Recorded Time Patellar tendonitis 44820587 Active Not Available [facility] 3 18:20:23 Migraine 82167025 Active 2021 Not Available [facility] 3 18:20:23 Contracept ion care Active 2021 Not Available [facility] 3 18:20:23 Pain in limb 86249214 Active Not Available [facility] 3 18:20:24 Pain of right knee joint 7982187372555 00 Active 2022 Maren Roman NP [address], [place], [address] , [facility] [employer] 3 12:18:11 Vaginal discharge 115915854 Active 2022 Maren Roman NP [address], [address], [place], [address] , [facility] [employer] [facility] 3 14:04:13 Anxiety 74910534 Active 2022 Maren Roman NP [address], [facility] [address], [place], [address] , [facility] [employer] [facility] 3 10:48:39 Problem Notes None recorded. Procedures Surgical History None recorded. Imaging Results Imaging Date Name Status LastModified by Organiz ation Details LastModified Time 07/10/2022 XR, knee completed [email or web address] [facility] [address] [facility] [address], [place], [address], 07/11/2022 09:41:44 Procedure Notes None recorded. Medical Equipment None Reported. Allergies Allergen ID Allergen Name Allergen Category Reaction Reaction Severity Criticality Documentation Date Start Date Code Code System Note Provider Name and Address Organization Details Recorded Time 32779 Substance with sulfonami de structure and antibacte rial mechanism of action (substanc e) medicatio n Not available Not available Not available 07/26/2022 48362 8003 SNOMED Maren Dey RN null, [facility] [employer] [facility] 14:24:32 Medications Name Sig Start Date [...] kg/m2 160.02 cm 16 /min 97.4 [degF] 90732.0 4 g 100 mm[Hg] 80 mm[Hg] Not Available [facility] 3 18:20:04 Date Recorded Body height Body mass index (BMI) Body mass index (BMI) Percentile per age and sex Body weight Body temperature Heart rate Respiratory rate Oxygen saturation Oxygen saturation in Arterial blood by Pulse oximetry Systolic blood pressure Diastolic blood pressure Provider Name and Address Organization Details Last Updated DateTime 3 160.02 cm 35.7 kg/m2 97 % 62895.8 7 g 96.9 [degF] 105 /min 16 /min 98 % 98 % 142 mm[Hg] 84 mm[Hg] Maren Dey RN [place] [employer] [facility] 3 12:05:43 Date Recorded Body height Body mass index (BMI) Percentile per age and sex Body mass index (BMI) Body weight Body temperature Heart rate Respiratory rate Oxygen saturation Oxygen saturation in Arterial blood by Pulse oximetry Systolic blood pressure Diastolic blood pressure Provider Name and Address Organization Details Last Updated DateTime 3 160.02 cm 97 % 36.2 kg/m2 10813.2 9 g 97 [degF] 95 /min 16 /min 96 % 96 % 138 mm[Hg] 88 mm[Hg] Maren Dey RN [facility] 3 14:26:38 Date Recorded Body height Body mass index (BMI) Percentile per age and sex Body mass index (BMI) Body weight Body temperature Heart rate Oxygen saturation Oxygen saturation in Arterial blood by Pulse oximetry Systolic blood pressure Diastolic blood pressure Provider Name and Address Organization Details Last Updated DateTime 4 160.02 cm 98 % 37.7 kg/m2 28201.1 7 g 98.4 [degF] 104 /min 97 % 97 % 113 mm[Hg] 79 mm[Hg] Tiff Burgos MA [facility] 4 09:36:44 Social History Question Answer Notes LastModified by Organizat ion Details LastModified Time Tobacco Smoking Status Never Smoker Marni miguel, [facility] 01/18/2023 09:38:13 Do You Have An Advance Directive? No [id number] Information not available 04/18/2022 Do You Wear A Helmet When Biking? Yes Information not available 01/18/2023 Is Blood Transfusion Acceptable In An Emergency? Yes Information not available 01/18/2023 What Is Your Level Of Caffeine Consumption? Occasional [id number] Information not available 04/18/2022 What Is Your [...] Type Of Diet Are You Following? REGULAR [id number] Information not available 04/18/2022 What Is The Highest Grade Or Level Of School You Have Completed Or The Highest Degree You Have Received? [id number] Information not available 01/18/2023 How Many Days Of Moderate [...] Do You Have A Medical Power Of Jigger Operator? No Information not available 01/18/2023 What Is Your Parents' Marital Status? Information not available 01/18/2023 Have You Ever Been Counseled For Unhealthy Alcohol Use? No Information not available 01/18/2023 Do You Have Any Pets? No Information not available 01/18/2023 What Is Your Relationship Status? Single [id number] Information not available 04/18/2022 Do You Use [...] Information n ot available 01/18/2023 Do You Use Sunscreen Routinely? Yes Information not available 01/18/2023 Has Tobacco Cessation Counseling Been Provided? No Information not available 01/18/2023 Have You Recently Traveled Abroad? No Information not available 01/18/2023 Are You Currently In School? Yes Information not available 01/18/2023 Do You Have Any Dietary Restrictions? No Information not available 01/18/2023 Sex: Female Functional Status Question Answer Note LastModified by [employer] ion Details LastModified Time Do you use any illicit or recreational drugs? No Information not available 01/18/2023 Do you or have you ever used any other forms of tobacco or nicotine? No Information not available 01/18/2023 What is your level of alcohol consumption? 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 Occasional [id number] Information not available 04/18/2022 Mental Status Question Answer Note LastModified by Organization D etails LastModified Time Do you feel stressed (tense, restless, nervous, or anxious, or unable to sleep at night)? [id number] Information not available 01/18/2023 Are you or have you been involved with bullying? No Information not available 01/18/2023 Family History Relationship Description Onset Age of this Age Resolved Age Notes LastModified by Organization Details LastModified Time Father No current problems or disability [id number] Not available 04/18/2022 18:19:52 Mother No current problems or disability [id number].[id number] Not available 04/18/2022 18:19:52 Maternal Uncle Type 2 diabetes mellitus [id number] Not available 04/18/2022 18:19:52 Medical History No [...] (COVID-19) vaccine, UNSPECIFIED 1 completed Not Available Replaced by [facility] 04/18/2022 18:21:08 SARS-COV-2 (COVID-19) vaccine, UNSPECIFIED 1 completed Not Available Replaced by [facility] 04/18/2022 18:21:08 SARS-COV-2 (COVID-19) vaccine, UNSPECIFIED 1 completed Not Available Replaced by [facility] 04/18/2022 18:21:08 Influenza, split virus, quadrivalent, preservative 1 completed Not Available Replaced by [facility] 04/18/2022 18:21:08 Tdap 3 completed Maren Dey RN [facility], [facility] GROUP [facility] 07/26/2022 14:51:05 Past Encounters Encounter ID Performer Location Encounter Start Date Encounter Closed Date Diagnosis/Indication Diagnosis SNOMED-CT Code Diagnosis ICD10 Code Diagnosis Note [id number] Sharan Burton MD [address] [address] 02/23/2021 00:00:00 02/23/2021 11:48:25 [id number] Sharan Burton MD [address] [address] 08/22/2021 00:00:00 08/22/2021 09:03:01 [id number] Maren Roman NP [address] [address] 07/10/2022 11:55:13 07/10/2022 12:42:42 Pain of right knee joint 5023718447 43812 M25.561 Xray right knee.[place] bill gel topical or similar otc.Referr ing to PT [facility] per pt request.We ar knee brace for this weekend, sister's wedding, off at night. [id number] Maren Roman NP [address] [address] 07/26/2022 14:17:20 07/26/2022 15:08:40 History and physical examination, pre-employment 544649395 Z02.1 Encouraged well balanced meals, active lifestyle and routine vision and dental appts. Administra tion of diphtheria, pertussis, and tetanus vaccine 617205345 Z23 Tdap [id number] Maren Roman NP [address] [address] 01/18/2023 09:38:00 01/18/2023 10:57:52 Anxiety 50443336 F41.9 sertraline 50 mg po daily, 1/2 tab po daily for 8-10 days then 1 tab po daily.refe rring to therapy as well. [id number] Maren Roman NP [address] [address] 02/22/2023 09:23:04 02/22/2023 10:00:05 Anxiety 08842429 F41.9 sertraline 50 mg po daily. Has referral to therapist if needed. Health Concerns Section Related Observation LastModified by Organization Detai ls LastModified Time None Recorded Concern Status LastModified by Organization Details LastModified Time None Recorded Advance Directives Directive N: Payers Encounter Date Sequence Insurance Name Policy Number Policy Lyn Covered Member ID Lyn Member ID Guarantor Name 07/10/2022 1 UMR [id number] Tabitha Andersen [id number] Blaise Andersen 07/26/2022 1 UMR [id number] Tabitha Andersen [id number] Blaise Andersen 01/18/2023 1 UMR [id number] Tabitha Andersen [id number] Blaise Andersen 02/22/2023 1 UMR [id number] Tabitha Andersen [id number] Blaise Andersen Notes Date Note Type Note [...] right knee. Maren Roman NP [email or web address], [place], [address], [employer] 07/10/2022 12:36:31 07/26/2022 text/html Here for work physical for '[employer] Maren Roman NP [address], [place], [address], [employer] 07/26/2022 14:53:23 01/18/2023 text/html Consents to telemedicine [...] Roman NP [address], [place], [address], [employer] 01/18/2023 10:55:16 02/22/2023 text/html Here for check [...] things. Maren Roman, MANUEL [address], [facility] [address], [place], [address], [facility] 02/22/2023 09:52:43 OBGyn Episode No OBEpisode recorded.
--- OUTSIDE RECORDS SUMMARY | 2024-07-09 17:53 | XMS_ITS | Clinical Summary ---
Author Organization [facility] Address [address] [address] Care Team Providers Care Pharmacy Technician Trainee Name Role Phone Bradley Dennis MD Unavailable [phone] Marine Clark DO Primary Care Provider [phone] Source Comments [facility],non-owned Affiliates and Associated Physician Practices is amultiple site organization consisting of ambulatory clinics and hospital sitesin [place], [place], [place] and [place]. This disclosure is being madepursuant to the Care Everywhere program and may not contain all information available regarding this patient. Last updated 17.[facility] Allergies Active Allergy Reactions Criticality Noted Date Comments Sulfa Drugs 08/31/2009 Mom and Sister are allergic. Mom want to keep her away from this drug. Medications * Be aware that medications may not be up to date on this document. Alwaysverify current medications with the patient. albuterol HFA (PROVENTIL;VENTOL IN;PROAIR) 108 (90 BASE) MCG/ACT inhalerIndication s:Exercise induced bronchospasm (HCC) Inhale 2 Puffs by mouth every 4 hours as needed for Shortness of Breath or Cough (use 10 minutes before exercise) 2 Inhaler 3 6 Active naproxen (NAPROSYN) 500 MG tablet Take 1 tablet by mouth 2 times daily as needed for Pain (headache) 30 tablet 1 8 Active norgestim-eth estrad triphasic (TRI-SPRINTEC) tablet Take 1 tablet by mouth once daily 1 packet 0 Active ferrous sulfate 325 (65 FE) MG tablet Take 1 (one) tablet by mouth 2 times daily with morning and evening meal 60 tablet 2 1 Active Active Problems Problem Noted Date Diagnosed [...] issues Assessment & Plan (04/10/2017 3:32 PM COPY SUPERVISOR): Mixed headaches-single migraine initially and now chronic [...] fracture 09/19/2003 07/18/2016 Overview (12/25/2009): 09/2003 Immunizations Immunization Administration Dates Next Due INFLUENZA VACCINE, TRIV. (AF LURIA, FLUZONE TRIVALENT; 6MO+) (IIV3) 03/16/2011 Covid [employer] primary monoval ent 12+ yr 0.3mL Purple cap 05/08/2020,04/16/2020 DTaP VACCINE IM (6wk-6yrs) 05/13/2007,,2002,08/25,2002 FLU VACCINE TRI IIV3 SPLIT P F IM (FLUVIRIN) 02/09/2013 HEP A PEDS 2 DOSE 10/11/2014,09/29/2013 HEP B VACCINE, PED/ADOL 2002,2002, HIB BOOSTER 07/14/2003, 3,2002,07/28 Human Papilloma Virus James valent Vaccine 10/11/2014,11/27/2013,09/29/2013 INFLUENZA A D3C3-84 VACCINE 01/11/2009 INFLUENZA VACCINE 12/16/2008, 5,01/07/2003,12/03 INFLUENZA VACCINE, QUADR. (A FLURIA, FLUZONE QUADRIVALENT; 6MO+) (IIV4) 11/27/2013 INFLUENZA VACCINE, QUADR. (F LUZONE; FLULAVAL; FLUARIX; AFLURIA QUADRIVALENT; 6MO+), 0.5 ML (IIV4) 11/13/2019,12/19/2018,12/13/2017,11/30,11/28/2015 MENINGOCOCCAL ACWY (MCV4P) VAC IM 12/19/2018,01/2014 MENINGOCOCCAL B RECOMBINANT, 2 OR 3 DOSE, IM 05/27/2020,11/13/2019 MMR 08/16/2019,05/13/2007,07/14/2003 PNEUMOCOCCAL CONJ, PEDS 07/14/2003,12/03,2002,07/28 POLIO [...] at Not on file Legal Sex Female 9:03 AM COPY SUPERVISOR Gender Identity Not on file Sexual Orientation Not on file Last Filed Vital Signs Vital Sign Reading Time Taken Comments Blood Pressure 100/78 02/17/2020 9:35 AM COPY SUPERVISOR Pulse 103 01/30/2016 2:39 PM COPY SUPERVISOR Temperature 36.6 C (97.9 F) 05/27/2020 3:05 PM CDT Respiratory Rate - - Oxygen Saturation 100% 01/30/2016 2:39 PM COPY SUPERVISOR Inhaled Oxygen Concentration - - Weight 72.2 kg (159 lb 2.8 oz) 02/17/2020 9:35 A M COPY SUPERVISOR Height 160.4 cm (5' 3.15 ) 02/17/2020 9:35 AM CS T Body Mass Index 28.06 02/17/2020 9:35 AM COPY SUPERVISOR Plan of Treatment Health Maintenance Due Date Last Done Comments HIV SCREENING 2017 CHLAMYDIA/GONORRHEA SCREENING 2018 HEPATITIS C SCREENING 04/10/2020 DTAP/TDAP/TD VACCINES (7 - T d or Tdap) 09/30/2023 09/29/2013, 05/13/2007, 10/14/2003, Additional history exists COVID-19 VACCINE (2023-2 5 season) 2023 05/08/2020, 04/16/2020 DEPRESSION SCREENING 02/19/2024 INFLUENZA VACCINE (Season Ended) 2024 11/13/2019, 12/19/2018, 12/13/2017, Additional history exists ZOSTER VACCINE (1 of 2) 2052 HEPATITIS [...] track( 020 1:57 PM CDT) [place] [address] CIG * Guarantor: TABITHA ANDERSNE Account Type Relation to Patient Date of Phone Billing Address Personal/Family 2000 [address] [place] [address] [place] [address] Care Teams Pharmacy Technician Trainee Relationship Specialty Start Date End Date Bradley Dennis MD PCP - Pediatrics 08/31/09 Marine Clark DO [address] [place] [id number] PCP - General Pediatrics 11/12/19
[2024-07-09 17:58] VITALS: BP 104/62; PULSE 82; RESP 18; TEMP 36.5; O2SAT 100
--- NOTE | 2024-07-09 18:19 | ED_ITS ---
HPI - URI/Sore Throat General Chief Complaint: Upper Respiratory Infection Stated Complaint: sore throat sinus Time Seen by Provider: 07/09/24 18:10 Source: patient Mode of arrival: ambulatory Limitations: no limitations History of Present Illness HPI Narrative: Tabitha is a 24-year-old female patient presenting to the clinic today with complaints of of runny nose, sinus pressure, and sore throat x3 days. She d enies any known fevers, chills, body aches. Works in a daycare setting. Denies any chest pain or shortness of breath. Related Data Home Medications ?Medication ?Instructions ?Recorded ?Confirmed ?Last Taken ?Type albuterol sulfate 90 mcg/actuation inhalation 05/03/24 06/30/24 Unknown History aerosol inhaler magnesium 200 mg tablet 200 mg PO DAILY 06/30/24 06/30/24 Unknown History Allergies Allergy/AdvReac Type Severity Reaction Status Date / Time prednisone Allergy Mild Rash Verified 07/09/24 18:20 Sulfa (Sulfonamide Allergy Mild Rash Verified 07/09/24 18:20 Antibiotics) Review of Systems Review of Systems: Pertinent positives per HPI. Patient denies any fever, chills, rash, headache, visual changes, dizziness, cough, shortness of breath, chest pain, palpitations, nausea, vomiting, diarrhea, constipation, abdominal pain, or any urinary issues. [facility] Past Medical History Medical History Allergies Anxiety Chronic headache Surgical History Surgical History No history of previous surgery Family History Family History Father Primary cancer of kidney Mother Hyperlipidemia Grandparent Heart disease Alcoholism Carcinoma of colon Social History Social History Social History: 06/23/24 very confident with medical forms Smoking status: Never smoker Alcohol intake: current Substance use: never Do You Feel Safe in your Home?: Yes Lack of Transportation: No Lack of Food: Never True Current Housing: I Have Housing Concerned About Future Housing: No Difficulty Paying Gas/Electric Bills: No Difficulty Paying for Meds: No Currently Unemployed: No Education: Bachelor's Degree Difficulty w/ Childcare or Family Care: No Living arrangements: with family Occupation/Education: student Additional occupation/education comments: [employer] student Spiritual care concerns: No Comments At the time of my signature, I reviewed and agree with the nursing past medical, surgical, social, and family history. There is no relevant family history pertinent to the patient complaint. Exam Narrative: General: Well-developed, obese, in no apparent distress Head: Normocephalic, atraumatic Eyes: Pupils equally round and reactive to light bilaterally, EOM intact, sclera and conjunctive clear, no discharge, lids normal Ears: TMs intact and clear, ear canals clear, no drainage, grossly hearing normal. Nose: Nares patent, clear nasal discharge, moderate inflammation, maxillary sinus tenderness. Mouth: Oral pharynx red without lesions or masses, good dentition, MMM. Postnasal drip Neck: Supple, trachea midline, no enlargement of anterior or posterior cervical nodes, no thyroid masses or goiter palpable. Cardio: Regular rate and rhythm, s1 and s2 normal, no murmur appreciated. Resp: Clear to auscultation bilaterally, no rhonchi, rales, wheezing or rubs Course Course Emergency Course: Portions of this record may have been created with voice recognition software. Level of Care: Express Care Visit Vital Signs Vital signs: Vital Signs Temperature 36.5 C 07/09/24 17:58 Pulse Rate 82 07/09/24 17:58 Respiratory Rate 18 07/09/24 17:58 Blood Pressure 104/62 07/09/24 17:58 Pulse Oximetry 100 07/09/24 17:58 Oxygen Delivery Room Air 07/09/24 17:58 Temperature 36.5 C 07/09/24 17:58 Pulse Rate 82 07/09/24 17:58 Respiratory Rate 18 07/09/24 17:58 Blood Pressure 104/62 07/09/24 17:58 Pulse Oximetry 100 07/09/24 17:58 Oxygen Delivery Room Air 07/09/24 17:58 Vital signs reviewed MDM - URI/Sore Throat MDM Narrative Medical decision making narrative: At the time of visit patient is resting comfortably on the exam table. Patient appears to be nontoxic. Labs: COVID and strep test was performed in the clinic today. Testing was negative. We will send strep for culture. Plan: I suspect patient has URI/pharyngitis. Supportive measures were discussed with the patient and they voiced understanding discharge instructions and agrees to treatment plan. Return precautions reviewed Differential Diagnosis Differential diagnosis: Likely upper respiratory infection, otitis media, sinusitis, viral infection, bronchitis, influenza, pharyngitis and other (COVID) Lab Data Labs: Lab Results 07/09/24 07/09/24 Range/Units 18:25 18:34 POC SARS CoV-2 Ag Negative (Negative) POC Grp A Strep Screen Negative (Negative) Discharge Plan Discharge Clinical Impression: URI (upper respiratory infection) Qualifiers: URI type: unspecified URI Qualified Code(s): J06.9 - Acute upper respiratory infection, unspecified Pharyngitis Qualifiers: Pharyngitis/tonsillitis etiology: unspecified etiology Qualified Code(s): J02.9 - Acute pharyngitis, unspecified Patient Disposition: Home Condition: Stable Instructions: Antibiotic Form, Pharyngitis (ED), Upper Respiratory Infection (ED) Additional Instructions: COVID and strep test were negative in the clinic today. We will send strep for culture. May take DayQuil/NyQuil for cold/flu symptoms Increase fluids and stay well hydrated Tylenol/motrin for pain/fever Flonase and OTC antihistamines as directed Vicks vapor rub to open sinuses Sinus rinses for congestion Cepacol spray, cough drops, throat lozenges, warm tea with honey/lemon, gargle salt water to soothe throat BRAT diet for diarrhea Clear liquids x 24 hours then advance as tolerated for nausea/vomiting Go to the ED if you develop a worsening in your condition- high fever not controlled by Tylenol or Motrin, dehydration, weakness, lethargy, shortness of breath, or chest pain. Follow up with your PCP in 3-5 days if symptoms persist. Patient Language: Vietnamese Prescriptions: No Action albuterol sulfate 90 mcg/actuation HFA aerosol inhaler INHALATION magnesium 200 mg tablet 200 mg PO DAILY sertraline 50 mg tablet 50 mg PO DAILY Qty: 90 1RF norgestimate-ethinyl estradiol 0.18/0.215/0.25 mg-0.035mg (28) tablet 1 tablet PO DAILY Qty: 84 1RF Follow-up/Referrals: Maren Roman APRN [Primary Care Provider] - Time of Disposition: 18:33 Quality NIHSS Nursing Documentation ED NIHSS nursing documentation: reviewed/agree
[2024-07-09 18:27] LABS: EDSTREPNEGPOS1 Negative (Negative)
[2024-07-09 18:35] LABS: EDCOVIDSCREEN Negative (Negative)
== END 2024-07-09 18:41 | disposition home or self-care (01) ==
PROVIDERS: Emergency Provider Nurse Practitioner Family; PCP Nurse Practitioner Family
DX: J06.9 Acute upper respiratory infection, unspecified (principal); J02.9 Acute pharyngitis, unspecified; Z20.822 Contact with and (suspected) exposure to COVID-19
CPT/HCPCS: 87081; 87426; 87880; 99213; G0463